=== PATIENT | male | born 1975 | race Two or more races ===

== ENCOUNTER → 2020-08-18 15:42 | Outpatient (BNVA) | payer SELFPAY | PROVIDERS: PCP Family Medicine; Visit Provider Nurse Practitioner ==

== ENCOUNTER 2021-02-01 10:49 | Outpatient (REF) | payer OTHER, SELFPAY ==
[2021-02-01 12:51] LABS: Alanine Aminotransferase 73 U/L (0-40); Albumin Level 4.3 g/dL (3.5-5.0); Alkaline Phosphatase 77 U/L (39-117); Anion Gap 14 (12-20); Aspartate Amino Transferase 32 U/L (5-37); Bilirubin Total 0.5 mg/dL (0.0-1.0); Blood Urea Nitrogen 18 mg/dL (9-16); Calcium 9.5 mg/dL (8.4-10.2); Carbon Dioxide 27 mmol/L (22-29); Chloride 106 mmol/L (96-108); Estimated Glomerular Filt Rate > 60; Gamma Glutamyl Transpeptidase 37 U/L (11-51); Glucose Random 146 mg/dL (60-115); Potassium 4.5 mmol/L (3.3-5.1); Sodium 142 mmol/L (135-145); Total Protein 7.2 g/dL (6.5-8.0)
[2021-02-01 13:11] LABS: Ferritin 181 ng/mL (20-250); TSH reflex Free T4 1.91 uIU/mL (0.32-4.0)
== END 2021-02-01 10:50 | disposition home or self-care (01) ==
LOC: HO.LAB 10:49
PROVIDERS: PCP Family Medicine; Referring Provider Family Medicine; Visit Provider Nurse Practitioner
DX: K59.00 Constipation, unspecified (principal); R14.0 Abdominal distension (gaseous); R19.5 Other fecal abnormalities
CPT/HCPCS: 36415; 80053; 82105; 82728; 82977; 84443; 99212

== ENCOUNTER → 2021-03-17 13:21 | Outpatient (BNVA) | payer OTHER, SELFPAY | PROVIDERS: PCP Family Medicine; Referring Provider Family Medicine; Visit Provider Nurse Practitioner | DX: K21.9 Gastro-esophageal reflux disease without esophagitis (principal); K76.0 Fatty (change of) liver, not elsewhere classified; K59.00 Constipation, unspecified; R14.0 Abdominal distension (gaseous) | CPT/HCPCS: 99212 ==

== ENCOUNTER 2021-04-07 07:53 | Outpatient (REF) | payer OTHER, SELFPAY ==
--- NOTE | ~2021-04-07 | US_ITS ---
EXAMINATION: US ABDOMEN COMPLETE CLINICAL INFORMATION: Gastroesophageal reflux disease without esophagitis. COMPARISON: Limited abdominal ultrasound 05/12/2019 and ultrasound abdomen complete 01/09/2019 TECHNIQUE: Real-time imaging of the abdominal viscera. FINDINGS: PANCREAS: Normal. ABDOMINAL AORTA: The visualized aorta is normal in caliber. INFERIOR VENA CAVA: Visualized portions are normal. LIVER: Enlarged liver measuring 22.6 cm. The liver contour is normal. There is diffuse increased liver parenchymal echogenicity, consistent with hepatic steatosis. No focal hepatic lesion. There is no intrahepatic biliary duct dilatation seen. GALLBLADDER: Normal. The gallbladder is physiologically distended without evidence of stones, sludge, polyps, wall thickening or pericholecystic fluid. COMMON BILE DUCT: Normal in caliber measuring 0.4 cm in diameter. RIGHT KIDNEY: Normal. No hydronephrosis. No renal calculi or focal parenchymal lesions. The kidney measures 13.0 cm in maximum dimension. LEFT KIDNEY: No hydronephrosis. No renal calculi or focal parenchymal lesions. The kidney measures 13.5 cm in maximum dimension. 1.9 cm simple cyst versus extrarenal pelvis. No follow-up imaging recommended. SPLEEN: Normal. The spleen measures 10.2 cm in maximum dimension. FREE FLUID: None. US/US abdomen complete IMPRESSION: Hepatomegaly with hepatic steatosis.
== END 2021-04-07 07:54 | disposition home or self-care (01) ==
LOC: HO.US 07:53
PROVIDERS: PCP Family Medicine; Visit Provider Nurse Practitioner
DX: K21.9 Gastro-esophageal reflux disease without esophagitis (principal)
CPT/HCPCS: 76700

== ENCOUNTER 2021-04-08 20:40 | Emergency (ER) | payer OTHER, SELFPAY ==
[2021-04-08 20:48] VITALS: BP 130/72; PULSE 96; RESP 18; TEMP 36.9; O2SAT 97; BMI 46.7
[2021-04-09 00:43] VITALS: BP 101/59; PULSE 78; RESP 18; TEMP 37; O2SAT 98
[2021-04-09 00:57] LABS: Basophils Percent Auto 0.3 % (0-2); Eosinophils Absolute Auto 0.3 X10*3/uL (0.0-0.4); Eosinophils Percent Auto 3.1 % (0-4); Hematocrit 43.8 % (42-52); Hemoglobin 14.5 g/dl (14.0-18.0); Imm Gran Abs Auto 0.02 X10*3/uL (0.00-0.03); Imm Gran Pct Auto 0.2 % (0.0-0.4); Lymphocytes Percent Auto 34.6 % (20-40); MANUAL DIFF FLAG NO; Mean Corpuscular HGB Conc 33.1 g/dl (31.0-36.0); Mean Corpuscular Hemoglobin 28.8 pg (27.0-33.0); Mean Corpuscular Volume 87.1 fL (80-98); Mean Platelet Volume 10.6 fL (9.4-12.4); Monocytes Absolute Auto 0.8 X10*3/uL (0.1-1.2); Monocytes Percent Auto 9.6 % (2-11); Neutrophils Absolute Auto 4.5 X10*3/uL (2.0-8.3); Neutrophils Percent Auto 52.2 % (45-73); Platelet Count 254 X10*3/uL (160-400); Red Blood Count 5.03 X10*6/uL (4.60-5.80); Red Cell Distribution Width 13.4 % (11.0-16.0); White Blood Count 8.6 X10*3/uL (4.8-10.8)
[2021-04-09 01:14] LABS: Alanine Aminotransferase 73 U/L (0-40); Albumin Level 4.3 g/dL (3.5-5.0); Alkaline Phosphatase 86 U/L (39-117); Anion Gap 12 (12-20); Aspartate Amino Transferase 30 U/L (5-37); Bilirubin Total 0.4 mg/dL (0.0-1.0); Blood Urea Nitrogen 20 mg/dL (9-16); Calcium 9.3 mg/dL (8.4-10.2); Carbon Dioxide 27 mmol/L (22-29); Chloride 106 mmol/L (96-108); Creatinine Clr Calc Pharmacy 140.9; Estimated Glomerular Filt Rate > 60; Glucose Random 111 mg/dL (60-115); Sodium 141 mmol/L (135-145); Total Protein 7.2 g/dL (6.5-8.0)
[2021-04-09 01:26] LABS: OBS Int Ctl Valid YES; OBS1 POSITIVE (NEGATIVE)
--- NOTE | 2021-04-09 01:43 | ED.GIBLEED ---
HPI - GI Bleed General Chief complaint: GI Bleed Stated complaint: Rectum bleeding Time Seen by Provider: 04/09/21 01:43 Source: patient and family () Mode of arrival: ambulatory History of Present Illness HPI Narrative: 46-year-old male with history of constipation, hepatic steatosis, GERD, and anxiety presents with 2 weeks of 3 episodes of bleeding with bowel movement that is painful in nature and is associated with anal itching. Patient denies constipation and denies discussing this with his biostatistics professor whom is following him currently for epigastric/stomach symptoms. Patient denies any abdominal pain, palpitations, lightheadedness, shortness of breath, diaphoresis. Related Data Home Medications Medication Instructions Recorded Confirmed hydroxyzine HCl 25 mg tablet 25 mg PO 08/18/20 fluticasone propionate 50 1 - 2 spray INTRANASAL DAILY PRN 03/17/21 mcg/actuation nasal spray,suspension Previous Rx's Medication Instructions Recorded bisacodyl 5 mg tablet,delayed 10 mg PO BEDTIME 30 Days #60 tab 02/01/21 release (Dulcolax (bisacodyl)) simethicone 180 mg capsule 180 mg PO .TIDAC 30 Days #90 cap 02/01/21 metronidazole 500 mg tablet 500 mg PO TID 10 Days #30 tab 03/17/21 omeprazole 20 mg capsule,delayed 20 mg PO BID 30 Days #60 cap 03/17/21 release Allergies Allergy/AdvReac Type Severity Reaction Status Date / Time amoxicillin Allergy Unknown dizziness Verified 03/17/21 13:32 penicillin V Allergy Unknown dizziness Verified 03/17/21 13:32 Review of Systems Review of Systems: Pertinent positives and negatives as stated in HPI and 10 point review of systems is otherwise negative. [facility] Past Medical History Source: nursing notes reviewed Medical History Anxiety GERD (gastroesophageal reflux disease) IBS (irritable bowel syndrome) Loose stools Morbid obesity Surgical History History of esophagogastroduodenoscopy (EGD) Family History Family History Father History of diabetes mellitus Mother History of diabetes mellitus Brother History of stomach cancer Social History Social History Alcohol intake: never Patient Tobacco Use Status: Never used Tobacco Use of substances other than those prescribed or required for medical reasons: No Advance Directives: No Advance Directives Information Provided: No Physical Exam Vital Signs: Vital Signs: Last Vital Signs Temp 98.6 F 04/09/21 00:43 Pulse 78 04/09/21 00:43 Resp 18 04/09/21 00:43 BP 101/59 L 04/09/21 00:43 Pulse Ox 98 04/09/21 00:43 Body Mass Index 46.7 VITAL SIGNS: Reviewed. GENERAL: Well developed, well nourished, in no acute distress. HEAD: Normocephalic/atraumatic EYES: PERRLA, EOMI OROPHARYNX: no oral lesions noted, posterior pharynx clear LUNGS: Normal breath sounds. No adventitious sounds or accessory muscle use. SpO2<98> CARDIOVASCULAR: Regular rate and rhythm without noted murmurs ABDOMEN: Soft, non-tender, non-distended with bowel sounds. EDWIN: Noninflamed hemorrhoid noted at 10:00 a.m. position, no fissures noted, no internal hemorrhoids appreciated and scant amount of blood on finger mixed with stool but difficult rectal exam. SKIN: Inspection of the skin reveals no rashes or pallor NEUROLOGIC: Alert and oriented x 4. Course Course Course Narrative: 46-year-old male with history and clinical presentation most consistent with intermittent hemorrhoidal bleeding. Symptoms and findings consistent with external hemorrhoids and patient will be provided with outpatient options and instructed to follow-up with his biostatistics professor on Sunday morning and discuss his symptoms at that time. On review of all investigations there is no evidence of anemia and on history there is no evidence of symptomatic findings. MDM - GI Bleed Lab Data Result diagrams: 04/09/21 00:46 04/09/21 00:46 Labs: Lab Results 04/09/21 04/09/21 04/09/21 Range/Units 00:46 00:46 01:22 WBC 8.6 (4.8-10.8) X10*3/uL RBC 5.03 (4.60-5.80) X10*6/uL Hgb 14.5 (14.0-18.0) g/dl Hct 43.8 (42-52) % MCV 87.1 (80-98) fL MCH 28.8 (27.0-33.0) pg MCHC 33.1 (31.0-36.0) g/dl RDW 13.4 (11.0-16.0) % Plt Count 254 (160-400) X10*3/uL MPV 10.6 (9.4-12.4) fL Immature Gran % (Auto) 0.2 (0.0-0.4) % Neut % (Auto) 52.2 (45-73) % Lymph % (Auto) 34.6 (20-40) % [place] % (Auto) 9.6 (2-11) % Eos % (Auto) 3.1 (0-4) % Baso % (Auto) 0.3 (0-2) % Lymph # (Auto) 3.0 (1.2-4.9) X10*3/uL [place] # (Auto) 0.8 (0.1-1.2) X10*3/uL Eos # (Auto) 0.3 (0.0-0.4) X10*3/uL Baso # (Auto) 0.0 (0.0-0.2) X10*3/uL Abs Immat Gran (auto) 0.02 (0.00-0.03) X10*3/uL Absolute Neuts (auto) 4.5 (2.0-8.3) X10*3/uL Absolute Nucleated RBC 0.000 (0.0-0.012) X10*3/uL Nucleated RBC % (auto) 0.0 (0.0-0.2) /100WBC Sodium 141 (135-145) mmol/L Potassium 4.0 (3.3-5.1) mmol/L Chloride 106 (96-108) mmol/L Carbon Dioxide 27 (22-29) mmol/L Anion Gap 12 (12-20) BUN 20 H (9-16) mg/dL Creatinine 0.86 (0.5-1.4) mg/dL Estim Creat Clear Calc 140.9 Estimated GFR > 60 Random Glucose 111 (60-115) mg/dL Calcium 9.3 (8.4-10.2) mg/dL Total Bilirubin 0.4 (0.0-1.0) mg/dL AST 30 (5-37) U/L ALT 73 H (0-40) U/L Alkaline Phosphatase 86 (39-117) U/L Total Protein 7.2 (6.5-8.0) g/dL Albumin 4.3 (3.5-5.0) g/dL Stool Occult Blood POSITIVE (NEGATIVE) Discharge Plan Discharge Clinical Impression: Bleeding hemorrhoids Patient Disposition: Home, Self-Care Instructions: Hemorrhoids (ED), Rectal Bleeding (ED), Sitz Bath (DC) Additional Instructions: 1. Reanude todos los medicamentos caseros seg?n lo prescrito. 2. Recomendar la preparaci?n H de venta herbert para el prurito anal y la reducci?n de la inflamaci?n. 3. Recomendar ba?os de asiento, por favor revise la informaci?n proporcionada. 4. Llame a zepeda gastroenter?logo el lunes por la ma?noa para programar nerissa mery de reevaluaci?n y analice estos episodios de hemorragia hemorroidal en kushal momento. Regrese a la adalgisa de emergencias si estuardo s?ntomas empeoran de manera aguda. Prescriptions: No Action hydroxyzine HCl 25 mg tablet 25 mg PO RF: 0 bisacodyl [Dulcolax (bisacodyl)] 5 mg tablet,delayed release (DR/EC) 10 mg PO BEDTIME 30 Days Qty: 60 RF: 6 simethicone 180 mg capsule 180 mg PO .TIDAC 30 Days Qty: 90 RF: 3 fluticasone propionate 50 mcg/actuation spray,suspension 1 - 2 spray intranasal DAILY PRNRF: 0 metronidazole 500 mg tablet 500 mg PO TID 10 Days Qty: 30 RF: 0 omeprazole 20 mg capsule,delayed release(DR/EC) 20 mg PO BID 30 Days Qty: 60 RF: 6 Referrals: Rachele Treviño MD [Primary Care Provider] - 2 days Isabel Peter ANP-C [Nurse Practitioner] - 2 days (Pt having intermittent episodes of what appears to be ext hemorrhoid bleeding.) Print Language: Senegalese
== END 2021-04-09 02:06 | disposition home or self-care (01) ==
PROVIDERS: Emergency Provider Student in an Organized Health Care Education/Training Program; PCP Family Medicine
DX: K64.9 Unspecified hemorrhoids (principal)
CPT/HCPCS: 36415; 80053; 82272; 85025; 99284

== ENCOUNTER → 2021-04-12 11:06 | Outpatient (BNVA) | payer OTHER, SELFPAY | PROVIDERS: PCP Family Medicine; Referring Provider Family Medicine; Visit Provider Nurse Practitioner | DX: K21.9 Gastro-esophageal reflux disease without esophagitis (principal); K76.0 Fatty (change of) liver, not elsewhere classified; K59.00 Constipation, unspecified; K64.9 Unspecified hemorrhoids; B37.89 Other sites of candidiasis | CPT/HCPCS: 99212 ==

== ENCOUNTER → 2021-04-25 13:03 | Outpatient (BNVA) | payer OTHER, SELFPAY | PROVIDERS: PCP Family Medicine; Referring Provider Family Medicine; Visit Provider Nurse Practitioner | DX: K76.0 Fatty (change of) liver, not elsewhere classified (principal); K21.9 Gastro-esophageal reflux disease without esophagitis; K59.00 Constipation, unspecified; K60.2 Anal fissure, unspecified | CPT/HCPCS: 99212 ==

== ENCOUNTER → 2021-05-10 12:18 | Outpatient (BNVA) | payer OTHER, SELFPAY | PROVIDERS: PCP Family Medicine; Referring Provider Family Medicine; Visit Provider Nurse Practitioner | DX: K60.2 Anal fissure, unspecified (principal); K59.00 Constipation, unspecified; K64.9 Unspecified hemorrhoids | CPT/HCPCS: 99212 ==

== ENCOUNTER → 2021-05-24 08:06 | Outpatient (BNVA) | payer OTHER, SELFPAY | PROVIDERS: PCP Family Medicine; Referring Provider Family Medicine; Visit Provider Nurse Practitioner | DX: K76.0 Fatty (change of) liver, not elsewhere classified (principal); K21.9 Gastro-esophageal reflux disease without esophagitis; K59.00 Constipation, unspecified; K60.2 Anal fissure, unspecified; K64.9 Unspecified hemorrhoids | CPT/HCPCS: 99212 ==

== ENCOUNTER 2021-07-05 08:40 | Outpatient (REF) | payer OTHER, SELFPAY ==
[2021-07-05 10:49] LABS: C Reactive Protein 0.97 mg/dL (< or = 0.50)
== END 2021-07-05 08:41 | disposition home or self-care (01) ==
LOC: HO.LAB 08:40
PROVIDERS: PCP Family Medicine; Referring Provider Family Medicine; Visit Provider Nurse Practitioner
DX: K60.2 Anal fissure, unspecified (principal); K59.00 Constipation, unspecified; K64.9 Unspecified hemorrhoids; Z12.11 Encounter for screening for malignant neoplasm of colon
CPT/HCPCS: 36415; 86140

== ENCOUNTER 2021-08-12 10:13 | Day surgery (SDC) | payer OTHER, SELFPAY ==
[2021-07-18 13:40] VITALS: BMI 49.0
--- NOTE | 2021-07-21 09:16 | HO.ANESPROP2 ---
HPI - Anesthesia Eval Consult details Narrative: 46yo M for Colonoscopy PMFSH Active Problems Active Problems: All Active Problems (Updated 07/18/21 @ 13:39 by Kaycee Roe RN) Hepatic steatosis (Acute) Constipation (Acute) Abdominal bloating (Acute) Rectal candidiasis (Acute) Bleeding hemorrhoids (Acute) Rectal fissure (Acute) GERD (gastroesophageal reflux disease) (Acute) Morbid obesity (Acute) Anxiety (Acute) Past Medical History Medical History (Updated 07/18/21 @ 13:39 by Kaycee Roe RN) Anxiety GERD (gastroesophageal reflux disease) History of COVID-19 IBS (irritable bowel syndrome) Loose stools Morbid obesity Family History Family History Father History of diabetes mellitus Mother History of diabetes mellitus Brother History of stomach cancer Surgical History Surgical History (Updated 07/18/21 @ 13:37 by Kaycee Roe RN) History of esophagogastroduodenoscopy (EGD) Social History Social History Alcohol intake: never Patient Tobacco Use Status: Never used Tobacco Meds Allergies Allergy/AdvReac Type Severity Reaction Status Date / Time amoxicillin Allergy Unknown dizziness Verified 07/05/21 08:54 penicillin V Allergy Unknown dizziness Verified 07/05/21 08:54 metronidazole AdvReac Mild Confusion Verified 07/05/21 08:54 Home Medications Medication Instructions Recorded Confirmed Last Taken Type hydroxyzine HCl 25 mg tablet 25 mg PO 08/18/20 04/25/21 Unknown History fluticasone propionate 50 1 - 2 spray INTRANASAL DAILY PRN 03/17/21 04/25/21 Unknown History mcg/actuation nasal spray,suspension nifedipine VT BID 04/25/21 Unknown History Exam Exam Date and Time: July 21, 2021 0916 Height,Weight and Vital Signs: Height 5 ft 6 in Weight 137.892 kg Pertinent Lab Results Pertinent Lab Results: Laboratory Tests 04/09/21 04/09/21 00:46 00:46 WBC 8.6 Hgb 14.5 Hct 43.8 Plt Count 254 Sodium 141 Potassium 4.0 Chloride 106 Carbon Dioxide 27 BUN 20 H Creatinine 0.86 Assessment and Plan Assessment Anesthesia Assessment: Chart Reviewed
[2021-08-12 11:11] VITALS: BP 136/77; PULSE 95; RESP 18; TEMP 36.8; O2SAT 98
[2021-08-12] MEDS: Lactated Ringers 1,000 ML 100 ML IVCONT (11:24)
--- NOTE | 2021-08-12 11:50 | MHC.SHP ---
Pre-Procedural Eval Section A Date of Service: 08/12/21 The patient is an INPATIENT: No The History & Physical has been completed within 30 days and I have reviewed it.: No Section B Chief Complaint: Rectal Fissure, Constipation Details of Present Illness: anal fissure, constipation Relevant Family History (Specify if Yes): Yes Relevant Social History: None Present Medications: see Short Stay Collaborative assessment Medical History: Significant History (Anxiety GERD (gastroesophageal reflux disease) IBS (irritable bowel syndrome) Loose stools Morbid obesity) History of Previous Operations: Relevant previous surgery/procedure and date(s) (hx of EGD) Allergies: Allergies Allergy/AdvReac Type Severity Reaction Status Date / Time amoxicillin Allergy Unknown dizziness Verified 07/05/21 08:54 penicillin V Allergy Unknown dizziness Verified 07/05/21 08:54 metronidazole AdvReac Mild Confusion Verified 07/05/21 08:54 Review of Systems Sugical H&P ROS: Negative: Cardiovascular and Respiratory and Yes, Specify: Constitution (Morbidly obese) and Gastrointestinal (Constipation) Exam Surgical H&P Exam: Normal: Heart, Normal: Lungs, Normal: Extremities and Normal: Abdomen Plan Diagnosis/Plan: Unchanged I have reviewed the history and physical and performed a pertinent physical examination on my patient. No changes have occurred unless specified.
--- NOTE | 2021-08-12 12:49 | P.OP_ITS ---
Operative Note Operative Note Date of Service: 08/12/21 Narrative: Pre-op diagnosis: Chronic constipaiton, anal fissure Post-op diagnosis:?other (Colon polyp, diverticulosis, hemorrhoids, healed anal fissure) Procedure: COLONOSCOPY TILL CECUM WITH BIOPSIES AND SNARE POLYPECTOMY Consent: Indications for the procedure and potential complications of bleeding, perforation, reaction to medications and missed diagnosis were discussed with the patient and informed consent was obtained. Instrument: Olympus PCF H 190 L variable stiffness pediatric colonoscope Monitoring: Vital signs and clinical assessment, intermittent blood pressure monitoring, continuous EKG monitoring, Pulse oximetry and Carbon Dioxide monitoring were done throughout the procedure. Colon withdrawl time was 14 minutes. Procedure: The patient was placed in the left lateral decubitis position and pre-procedure medications were administered. After a digital rectal examination of the ano-rectum, the video colonoscope was inserted into the rectum and advanced through the colon to the cecum. The colonoscope was slowly withdrawn in a retrograde panoramic fashion and the colon mucosa was carefully examined including a retroflexed view of the rectum. Findings and interventions are described below. Procedure Difficulty: Without difficulty Findings: Terminal Ileum: Not evaluated Cecum:? Normal Ascending Colon:? Normal Transverse Colon:? Normal Descending Colon:? Normal Sigmoid Colon:? Mild diverticulosis Rectum:? A 7-8 mm sessile polyp on retroflexed exam removed with a hot snare Ano-rectum:? Moderate internal hemorrhoids. A skin tag noted in the anal canal - likely site of healed anal fissure. No active fissure seen. Colon preparation: Excellent ? Impression and Post Procedure Diagnosis: Colonoscopy Findings: One small polyp removed. Random biopsies obtained from the right colon to check for microscopic colitis. Mild diverticulosis seen in the sigmoid colon Moderate hemorrhoids on retroflexed exam. A skin tag noted in the anal canal - likely site of healed anal fissure Plan: Await pathology results Patient has an appointment on 08/26/21 in the [facility] with? Isabel Peter NP. Repeat Colonoscopy interval based on path results - in 5 years if polyps are adenomatous and 10 years if polyps are hyperplastic. Above findings were reviewed with the patient and colon polyps, Anal Fissure and Hemorrhoids handouts were given in the discharge area Surgeon: Jeffery Mackey MD Anesthesia:?MAC (Nhung Romero CRNA) Was an Campus Security Officer used for this Procedure?:?Yes Campus Security Officer:?Jill Coon Estimated blood loss (mL):?0 Pathology:?other (A. right colon bxs, R/O microscopic colitis? B. rectal polyp) Condition:?stable Disposition:?PACU
[2021-08-12 13:45] VITALS: BP 108/65; PULSE 87; RESP 16; TEMP 36.2; O2SAT 100
[2021-08-12 14:00] VITALS: BP 106/66; PULSE 82; RESP 16; TEMP 36.3; O2SAT 97
== END 2021-08-12 14:32 | disposition home or self-care (01) ==
PROVIDERS: PCP Family Medicine; Visit Provider Internal Medicine Gastroenterology
PROC: 0DJD8ZZ Inspection of Lower Intestinal Tract, Via Natural or Artificial Opening Endoscopic (ICD-10-PCS; CPT 45378; principal; 2021-08-12 11:50)
DX: K62.81 Anal sphincter tear (healed) (nontraumatic) (old) (principal); K59.09 Other constipation; K57.30 Diverticulosis of large intestine without perforation or abscess without bleeding; K64.8 Other hemorrhoids; K62.1 Rectal polyp; K64.4 Residual hemorrhoidal skin tags
CPT/HCPCS: 45385; 45380; 88305; J2405; J2765

== ENCOUNTER → 2021-08-26 08:35 | Outpatient (BNVA) | payer OTHER, SELFPAY | PROVIDERS: PCP Family Medicine; Referring Provider Family Medicine; Visit Provider Nurse Practitioner | DX: K21.9 Gastro-esophageal reflux disease without esophagitis (principal); K60.2 Anal fissure, unspecified; K64.9 Unspecified hemorrhoids; K76.0 Fatty (change of) liver, not elsewhere classified; K59.00 Constipation, unspecified | CPT/HCPCS: 99212 ==

== ENCOUNTER → 2021-09-08 13:53 | Outpatient (BNVA) | payer OTHER, SELFPAY | PROVIDERS: PCP Family Medicine; Referring Provider Family Medicine; Visit Provider Surgery | DX: K64.8 Other hemorrhoids (principal); L29.0 Pruritus ani; E66.01 Morbid (severe) obesity due to excess calories; Z68.43 Body mass index [BMI] 50.0-59.9, adult | CPT/HCPCS: 46600; 99202 ==

== ENCOUNTER 2021-11-11 11:45 | Outpatient (REF) | payer OTHER, SELFPAY | END 2021-11-11 11:46 | disposition home or self-care (01) | LOC: HO.LAB 11:45 | PROVIDERS: PCP Family Medicine; Referring Provider Family Medicine; Visit Provider Nurse Practitioner | DX: K58.2 Mixed irritable bowel syndrome (principal); K21.9 Gastro-esophageal reflux disease without esophagitis; K76.0 Fatty (change of) liver, not elsewhere classified; K64.9 Unspecified hemorrhoids | CPT/HCPCS: 36415; 86003; 99212 ==

== ENCOUNTER 2021-12-20 07:40 | Outpatient (REF) | payer OTHER, SELFPAY ==
--- NOTE | ~2021-12-20 | US_ITS ---
EXAMINATION: US ABDOMEN LIMITED CLINICAL INFORMATION: Fatty (change of) liver, not elsewhere classified. COMPARISON: Ultrasound abdomen complete 04/07/2021. Ultrasound abdomen limited 05/12/2019. TECHNIQUE: Real-time imaging of the right upper quadrant abdominal viscera. FINDINGS: PANCREAS: Normal. LIVER: The liver is enlarged measuring 22.1 cm. The liver contour is normal. Increased liver echogenicity seen throughout. No focal hepatic lesion. There is no intrahepatic biliary duct dilatation seen. GALLBLADDER: The gallbladder is physiologically distended without evidence of stones, sludge, polyps, or pericholecystic fluid. COMMON BILE DUCT: Normal in caliber measuring 0.3 cm in diameter. RIGHT KIDNEY: Normal. No hydronephrosis. No renal calculi or focal parenchymal lesions. The kidney measures 13.6 cm in maximum dimension. FREE FLUID: None. US/US abdomen limited IMPRESSION: Mild hepatomegaly with hepatic steatosis. No focal lesion seen. Visualized pancreas, gallbladder and the right kidneys unremarkable. No change from previous study 04/07/2021
== END 2021-12-20 07:41 | disposition home or self-care (01) ==
LOC: HO.US 07:40
PROVIDERS: Visit Provider Nurse Practitioner
DX: K76.0 Fatty (change of) liver, not elsewhere classified (principal)
CPT/HCPCS: 76705

== ENCOUNTER → 2022-02-09 10:54 | Outpatient (BNVA) | payer OTHER, SELFPAY | PROVIDERS: PCP Family Medicine; Visit Provider Nurse Practitioner | DX: K58.2 Mixed irritable bowel syndrome (principal); K60.2 Anal fissure, unspecified; K76.0 Fatty (change of) liver, not elsewhere classified | CPT/HCPCS: 99212 ==

== ENCOUNTER 2022-05-28 14:27 | Emergency (ER) | payer OTHER, SELFPAY ==
--- NOTE | ~2022-05-28 | XR_ITS ---
EXAMINATION: CHEST 2 VIEWS CLINICAL INFORMATION: cough/nasal congestion . COMPARISON: No recent pertinent prior studies are available for comparison. TECHNIQUE: PA and lateral views of the chest obtained. FINDINGS: The lungs are hypoexpanded with basilar atelectatic changes. No focal infiltrate, effusion, edema, or pneumothorax. Cardiac and mediastinal silhouettes are within normal limits for technique. No acute bony abnormality seen XR/XR chest 2V IMPRESSION: Hypoexpanded with basilar markings more likely due to atelectasis.
[2022-05-28 15:05] VITALS: BP 146/78; PULSE 92; RESP 18; TEMP 36.3; O2SAT 98; BMI 43.5
--- NOTE | 2022-05-28 15:07 | ED.URI ---
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 Patient states that over the last 3 weeks he has had sinus congestion that is causing pain. Patient denies any dizziness, lightheadedness, abdominal pain, nausea, vomiting, fever, chills, blurry vision, double vision, loss of vision, chest pain, difficulty breathing, shortness of breath, back pain, night sweats, pain with urination, increased urinary frequency, increased urinary urgency, blood in his urine or stool, syncope or a near syncopal episode, recent trauma or falls, bowel incontinence, bladder incontinence, bowel retention, bladder retention, or any other complaints at this time. <EUSEBIA Boss Last Filed: 05/29/22 01:20> MD elicited complaint: nasal congestion and sinus pain <EUSEBIA Boss Last Filed: 05/29/22 01:20> Severity: mild <EUSEBIA Boss Last Filed: 05/29/22 01:20> Pain scale (0-10): 3 <EUSEBIA Boss Last Filed: 05/29/22 01:20> Able to tolerate fluids by mouth: Yes <EUSEBIA Boss Last Filed: 05/29/22 01:20> Exacerbating factors: nothing <EUSEBIA Boss Last Filed: 05/29/22 01:20> Relieving factors: nothing <EUSEBIA Boss Last Filed: 05/29/22 01:20> Associated symptoms: denies other symptoms <EUSEBIA Boss - Last Filed: 05/29/22 01:20> Treatments prior to arrival: none <EUSEBIA Boss - Last Filed: 05/29/22 01:20> Related Data Home Medications: Home Medications Medication Instructions Recorded Confirmed hydroxyzine HCl 25 mg tablet 25 mg PO anxiety 08/18/20 09/08/21 fluticasone propionate 50 1 - 2 spray intranasal DAILY PRN 03/17/21 09/08/21 mcg/actuation nasal spray,suspension nifedipine DE BID 04/25/21 09/08/21 Previous Rx's Medication Instructions Recorded omeprazole 20 mg capsule,delayed 20 mg PO BID 30 days #60 caps 08/26/21 release simethicone 180 mg capsule 180 mg PO .TIDAC 30 days #90 caps 08/26/21 hydrocortisone 2.5 % topical cream 1 appl DE BID PRN hemorrhoids 30 11/15/21 with perineal applicator days #30 grams menthol 0.44 %-zinc oxide 20.6 % 1 appl topical QID PRN wound 11/18/21 topical ointment (Calmoseptine) healing #113 grams doxycycline hyclate 100 mg tablet 100 mg PO BID 7 days #14 tabs 05/28/22 <EUSEBIA Ch - Last Filed: 05/28/22 15:08> Allergies/Adverse Reactions: Allergies Allergy/AdvReac Type Severity Reaction Status Date / Time amoxicillin Allergy Unknown dizziness Verified 02/09/22 11:19 penicillin V Allergy Unknown dizziness Verified 02/09/22 11:19 metronidazole AdvReac Mild Confusion Verified 02/09/22 11:19 <EUSEBIA Ch - Last Filed: 05/28/22 15:08> Review of Systems Constitutional: Constitutional: Reports no additional constitutional complaints, Denies chills, Denies fever(s) and Denies night sweats <EUSEBIA Boss Last Filed: 05/29/22 01:20> Eyes: Eyes: Reports no additional eye complaints, Denies blurry vision, Denies change in vision, Denies diplopia, Denies eye discharge, Denies loss of vision and Denies eye pain <EUSEBIA Boss Last Filed: 05/29/22 01:20> ENT: Denies dizziness and Reports sinus pain <EUSEBIA Boss Last Filed: 05/29/22 01:20> Cardiovascular: Cardiovascular: Reports no additional cardiovascular complaints, Denies chest pain, Denies lightheadedness, Denies Loss of Consciousness and Denies dyspnea <EUSEBIA Boss Last Filed: 05/29/22 01:20> Respiratory: Respiratory: Reports no additional respiratory complaints and Denies dyspnea <EUSEBIA Boss - Last Filed: 05/29/22 01:20> Gastrointestinal: Gastrointestinal: Reports no additional gastrointestinal complaints, Denies abdominal pain, Denies melena, Denies hematochezia, Denies change in bowel habits and Denies change in stool character <EUSEBIA Boss - Last Filed: 05/29/22 01:20> Genitourinary: Genitourinary: Reports no additional male genitourinary complaints, Denies hematuria, Denies oliguria, Denies difficulty urinating, Denies dysuria, Denies urinary frequency, Denies urinary hesitancy, Denies urinary incontinence and Denies urinary urgency <EUSEBIA Boss Last Filed: 05/29/22 01:20> Musculoskeletal: Musculoskeletal: Reports no additional musculoskeletal complaints, Denies numbness and Denies tingling <EUSEBIA Boss - Last Filed: 05/29/22 01:20> Neurologic: Denies dizziness, Denies loss of vision, Denies numbness and Denies tingling <EUSEBIA Boss Last Filed: 05/29/22 01:20> Psychiatric: Psychiatric: Reports no additional psychiatric complaints <EUSEBIA Boss Last Filed: 05/29/22 01:20> Endocrine: Endocrine: Reports no additional endocrine complaints <EUSEBIA Boss Last Filed: 05/29/22 01:20> Hematologic/Lymphatic: Hematologic/Lymphatic: Reports no additional hematologic/lymphatic complaints <EUSEBIA Boss Last Filed: 05/29/22 01:20> Allergic/Immunologic: Allergic/Immunologic: Reports no additional allergic/immunologic complaints <EUSEBIA Boss Last Filed: 05/29/22 01:20> PMFSH Past Medical History Attestation statement: The following information was validated with the patient. <EUSEBIA Boss - Last Filed: 05/29/22 01:20> Source: old records reviewed and nursing notes reviewed <EUSEIBA Boss - Last Filed: 05/29/22 01:20> Medical History: Medical History Anxiety GERD (gastroesophageal reflux disease) Hemorrhoids with complication History of COVID-19 Loose stools Morbid obesity Pruritus ani <EUSEBIA Ch - Last Filed: 05/28/22 15:08> Surgical History: Surgical History History of colonoscopy (08/12/21) History of esophagogastroduodenoscopy (EGD) <EUSEBIA Ch - Last Filed: 05/28/22 15:08> Family History Family History: Family History Father History of diabetes mellitus Mother History of diabetes mellitus Brother History of stomach cancer <EUSEBIA Ch - Last Filed: 05/28/22 15:08> Social History Social History: Social History Alcohol intake: never Patient Tobacco Use Status: Never used Tobacco Advance Directives: No Advance Directives Information Provided: Yes <EUSEBIA Ch - Last Filed: 05/28/22 15:08> Physical Exam Vital Signs: Vital Signs: Last Vital Signs Temp 97.4 F 05/28/22 15:05 Pulse 92 05/28/22 15:05 Resp 18 05/28/22 15:05 BP 146/78 H 05/28/22 15:05 Pulse Ox 98 05/28/22 15:05 O2 Del Method 05/28/22 15:05 BMI result Body Mass Index 43.5 <EUSEBIA Ch - Last Filed: 05/28/22 15:08> Vital Signs: Last Vital Signs Temp 97.4 F 05/28/22 15:05 Pulse 92 05/28/22 15:05 Resp 18 05/28/22 15:05 BP 146/78 H 05/28/22 15:05 Pulse Ox 98 05/28/22 15:05 O2 Del Method 05/28/22 15:05 BMI result Body Mass Index 43.5 <Tatiana Spring VT - Last Filed: 05/29/22 01:20> Const: General: cooperative, no acute distress, alert and awake <EUSEBIA Boss - Last Filed: 05/29/22 01:20> Nutritional Appearance: well nourished <Tatiana Spring VT - Last Filed: 05/29/22 01:20> Orientation/consciousness: patient oriented x3 <EUSEBIA Boss - Last Filed: 05/29/22 01:20> Limitations: no limitations <Tatiana Spring VT - Last Filed: 05/29/22 01:20> HEENT: Head: Yes normal to inspection and Yes atraumatic <EUSEBIA Boss - Last Filed: 05/29/22 01:20> Ears: hearing grossly normal bilaterally and external ears normal <EUSEBIA Boss - Last Filed: 05/29/22 01:20> General nose exam: Normal external nose present, no nasal discharge noted and no epistaxis <Tatiana Spring VT - Last Filed: 05/29/22 01:20> Face and sinus: Yes normal facial exam, No abrasion, No laceration and Yes sinus tenderness <aTtiana Spring VT - Last Filed: 05/29/22 01:20> Mouth: Normal oral and palatal mucosa present, no drooling and no muffled voice <Tatiana Spring VT - Last Filed: 05/29/22 01:20> Eyes: General: appearance normal, both eyes and all related structures <EUSEBIA Boss - Last Filed: 05/29/22 01:20> Periorbital: periorbital findings normal <EUSEBIA Boss - Last Filed: 05/29/22 01:20> Eyelids: Yes eyelids normal <EUSEBIA Boss - Last Filed: 05/29/22 01:20> Conjunctivae: conjunctivae normal <EUSEBIA Boss - Last Filed: 05/29/22 01:20> Pupils: Equal, round and reactive pupils present <EUSEBIA Boss - Last Filed: 05/29/22 01:20> EOM: EOMs intact bilaterally <EUSEBIA Boss - Last Filed: 05/29/22 01:20> Neck: Neck: Yes normal visual inspection, Yes full ROM and Yes no lymphadenopathy <Tatiana Spring PA - Last Filed: 05/29/22 01:20> Chest: Chest palpation & inspection: normal inspection of the chest <Tatiana Spring PA - Last Filed: 05/29/22 01:20> Resp: Effort & Inspection: normal respiratory effort and able to speak in complete sentences <Tatiana Spring PA - Last Filed: 05/29/22 01:20> Auscultation: clear to auscultation bilaterally <Tatiana Spring PA - Last Filed: 05/29/22 01:20> Cardio: Rate: regular rate <Tatiana Spring PA - Last Filed: 05/29/22 01:20> Rhythm: regular rhythm <Tatiana Spring PA - Last Filed: 05/29/22 01:20> GI: Inspection: Yes normal to inspection <Tatiana Spring PA - Last Filed: 05/29/22 01:20> Neuro: General: patient oriented x3 and moves all extremities <Tatiana Spring PA - Last Filed: 05/29/22 01:20> Cranial nerves: Yes Equal, round and reactive pupils present <Tatiana Spring PA - Last Filed: 05/29/22 01:20> Cognition (Neuro): normal cognition <Tatiana Spring PA - Last Filed: 05/29/22 01:20> Motor exam (neuro): 5/5 motor strength present throughout <Tatiaan Spring PA - Last Filed: 05/29/22 01:20> Sensory Exam: Normal double simultaneous stimulation for sensation <Tatiana Spring PA - Last Filed: 05/29/22 01:20> Coordination: [id number]-pz-ntek test normal <Tatiana Spring PA - Last Filed: 05/29/22 01:20> Extrem: General: Yes normal to inspection, Yes full ROM and Yes capillary refill normal <Tatiana Spring PA - Last Filed: 05/29/22 01:20> Psych: Appearance: grossly normal <Tatiana Spring PA - Last Filed: 05/29/22 01:20> Mental Status: mental status grossly normal <EUSEBIA Boss - Last Filed: 05/29/22 01:20> Affect: normal affect <EUSEBIA Boss Last Filed: 05/29/22 01:20> Attitude: cooperative <EUSEBIA Boss Last Filed: 05/29/22 01:20> Thought process: Normal thought process present <EUSEBIA Boss Last Filed: 05/29/22 01:20> Thought content: Normal thought content present <EUSEBIA Boss Last Filed: 05/29/22 01:20> Insight: Good insight present (Psych) <EUSEBIA Boss Last Filed: 05/29/22 01:20> Course Course Course Narrative: RME- 15:15PM - 47 year old male who is [place]an-speaking presenting with to the ED with complaints of nasal congestion/rhinorrhea with subjective fevers nausea and a cough for the past 3 weeks. Reports he had a negative COVID test at home. Denies any measured fevers, dizziness, neck pain/stiffness, trouble swallowing breathing, chest pain or shortness of breath, vomiting, diarrhea, abdominal pain, recent travel or sick contacts or any other symptoms complaints or concerns at this time. Plan: CXR, COVID/RSV/flu swab. Patient is stable to go back to the waiting room to be evaluated in EM. <EUSEBIA Ch - Last Filed: 05/28/22 15:08> Medical Decision Making Medical Decision Making MDM Narrative: Patient is a 47 year old assigned male at with a history of GERD presenting to the emergency department today with sinus pain. Patient's physical exam showed sinus pain but was otherwise unremarkable. Patient's chest x-ray showed no acute process. Patient's RSV/COVID-19/Influenza swab was negative. I explained my physical exam findings as well as all test results to the patient. I answered all questions asked by the patient. I stressed the importance of the patient taking his medication as prescribed. I stressed the importance of the patient following up with his primary care provider. I stressed the importance of the patient returning to the emergency department immediately if his symptoms were to worsen or if he were to develop any dizziness, shortness of breath, difficulty breathing, chest pain, blurry vision, loss of vision, nausea, vomiting, abdominal pain, fever, chills, back pain, or any other complaints. Patient verbalized agreement and understanding with this treatment plan and discharge. <EUSEBIA Boss - Last Filed: 05/29/22 01:20> Differential Diagnosis Differential Diagnoses: The differential diagnosis associated with the presentation includes <EUSEBIA Boss - Last Filed: 05/29/22 01:20> sinusitis <EUSEBIA Boss - Last Filed: 05/29/22 01:20> Lab Data MDM Lab Attestation statement: I reviewed the patient's lab results. <EUSEBIA Boss - Last Filed: 05/29/22 01:20> Labs: Lab Results 05/28/22 Range/Units 15:46 Influenza Type A (PCR) NEGATIVE (Negative) Influenza Type B (PCR) NEGATIVE (Negative) RSV RNA Qual (PCR) NEGATIVE (Negative) SARS-CoV-2 RNA (RT-PCR) NEGATIVE (Negative) <EUSEBIA Ch - Last Filed: 05/28/22 15:08> Lab Results 05/28/22 Range/Units 15:46 Influenza Type A (PCR) NEGATIVE (Negative) Influenza Type B (PCR) NEGATIVE (Negative) RSV RNA Qual (PCR) NEGATIVE (Negative) SARS-CoV-2 RNA (RT-PCR) NEGATIVE (Negative) <EUSEBIA Boss - Last Filed: 05/29/22 01:20> Radiology Impression Discussion of test interpretation with radiology: I have reviewed the radiologist's reading. <EUSEBIA Boss - Last Filed: 05/29/22 01:20> Radiologist Impression: EXAMINATION: CHEST 2 VIEWS CLINICAL INFORMATION: cough/nasal congestion COMPARISON: No recent pertinent prior studies are available for comparison. TECHNIQUE: PA and lateral views of the chest obtained.? FINDINGS: The lungs are hypoexpanded with basilar atelectatic changes. No focal infiltrate, effusion, edema, or pneumothorax. Cardiac and mediastinal silhouettes are within normal limits for technique. No acute bony abnormality seen XR/XR chest 2V IMPRESSION: Hypoexpanded with basilar markings more likely due to atelectasis. Dictated By: Miguel Atkins MD Signed By: Electronically signed by Miguel Atkins MD 05/28/22 [id number] <EUSEBIA Boss - Last Filed: 05/29/22 01:20> Discharge Plan Discharge Clinical Impression: Sinusitis <EUSEBIA Ch Last Filed: 05/28/22 15:08> Patient Disposition: Home, Self-Care <EUSEBIA Ch Last Filed: 05/28/22 15:08> Instructions: Sinusitis (ED) <EUSEBIA Ch Last Filed: 05/28/22 15:08> Additional Instructions: Follow up with your primary care provider. Return to the emergency department immediately if your symptoms worsen or if you develop any dizziness, shortness of breath, difficulty breathing, chest pain, blurry vision, loss of vision, nausea, vomiting, abdominal pain, fever, chills, back pain, or any other complaints. Rad un seguimiento con zepeda proveedor de atenci?n primaria. Regrese al departamento de emergencias de inmediato si estuardo s?ntomas empeoran o si presenta mareos, falta de aire, dificultad para respirar, dolor de pecho, visi?n borrosa, p?rdida de la visi?n, n?useas, v?mitos, dolor abdominal, fiebre, escalofr?os, dolor de espalda o cualquier otras quejas. <EUSEBIA Ch Last Filed: 05/28/22 15:08> Prescriptions: New doxycycline hyclate 100 mg tablet 100 mg PO BID 7 Days Qty: 14 0RF No Action hydrocortisone 2.5 % cream with perineal applicator 1 appl DE BID PRN (Reason: hemorrhoids) 30 Days Qty: 30 2RF menthol-zinc oxide [Calmoseptine] 0.44-20.6 % ointment 1 appl topical QID PRN (Reason: wound healing) Qty: 113 0RF hydroxyzine HCl 25 mg tablet 25 mg PO fluticasone propionate 50 mcg/actuation spray,suspension 1 - 2 spray intranasal DAILY PRN nifedipine paste DE BID omeprazole 20 mg capsule,delayed release(DR/EC) 20 mg PO BID 30 Days Qty: 60 6RF simethicone 180 mg capsule 180 mg PO .TIDAC 30 Days Qty: 90 3RF <EUSEBIA Ch - Last Filed: 05/28/22 15:08> Referrals: Rachele Treviño MD [Primary Care Provider] - <EUSEBIA Ch - Last Filed: 05/28/22 15:08> Discharge Date/Time: 05/28/22 19:02 <EUSEBIA Ch - Last Filed: 05/28/22 15:08> Print Language: [place]an <EUSEBIA Ch - Last Filed: 05/28/22 15:08>
[2022-05-28 16:35] LABS: Influenza A PCR NEGATIVE (Negative); Influenza B PCR NEGATIVE (Negative); Resp Syncy Virus RNA Qual PCR NEGATIVE (Negative); SARS COV2 PCR INHOUSE NEGATIVE (Negative)
== END 2022-05-28 19:02 | disposition home or self-care (01) ==
PROVIDERS: Physician Assistant Medical; Emergency Provider Emergency Medicine; PCP Family Medicine
DX: J32.9 Chronic sinusitis, unspecified (principal); R05.9 Cough, unspecified; R09.81 Nasal congestion; Z20.822 Contact with and (suspected) exposure to COVID-19; Z79.899 Other long term (current) drug therapy
CPT/HCPCS: 0241U; 71046; 99281; 99283

== ENCOUNTER 2022-08-24 06:48 | Emergency (ER) | payer OTHER, SELFPAY ==
[2022-08-24 06:54] VITALS: BP 137/83; PULSE 115; RESP 18; TEMP 36.6; O2SAT 99; BMI 48.4
[2022-08-24 07:33] VITALS: BP 130/86; PULSE 94; RESP 20; TEMP 36.8; O2SAT 98
--- NOTE | 2022-08-24 07:34 | PC.NURSE ---
Patient woke up this morning at approximately 0500 feeling anxious and a little nauseous with sweaty hands. Patient states that during this anxiety attack he was feeling some palpitations that have since resolved. Patient drank some [employer] tea and took 1/4 tab hydroxyzine because this medication makes him sleepy. Patient uses an apnea machine that he had to take off during this attack due to increased anxious feelings. Of note patient states that he recently went on a diet where he is cutting out sugar and has been using a sugar substitute and is wondering if this could be the cause of this attack.
--- NOTE | 2022-08-24 08:14 | ED.GENADULT ---
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 Patient states that he woke up at about 3 this morning with an anxiety attack. Patient states that he tried to take some of his anxiety medication but it didn't help. Patient states that he is currently nauseous. Patient denies any dizziness, lightheadedness, abdominal pain, vomiting, fever, chills, blurry vision, double vision, loss of vision, chest pain, difficulty breathing, shortness of breath, back pain, night sweats, pain with urination, increased urinary frequency, increased urinary urgency, blood in his urine or stool, syncope or a near syncopal episode, recent trauma or falls, bowel incontinence, bladder incontinence, bowel retention, bladder retention, or any other complaints at this time. Onset (ago): hour(s) Severity: mild Severity scale (1-10): 2 Relieving factors: none Exacerbating factors: none Associated symptoms: denies other symptoms Treatments prior to arrival: none Related Data Home Medications Medication Instructions Recorded Confirmed hydroxyzine HCl 25 mg tablet 25 mg PO anxiety 08/18/20 09/08/21 fluticasone propionate 50 1 - 2 spray intranasal DAILY PRN 03/17/21 09/08/21 mcg/actuation nasal spray,suspension nifedipine NV BID 04/25/21 09/08/21 Previous Rx's Medication Instructions Recorded omeprazole 20 mg capsule,delayed 20 mg PO BID 30 days #60 caps 08/26/21 release simethicone 180 mg capsule 180 mg PO .TIDAC 30 days #90 caps 08/26/21 hydrocortisone 2.5 % topical cream 1 appl NV BID PRN hemorrhoids 30 11/15/21 with perineal applicator days #30 grams menthol 0.44 %-zinc oxide 20.6 % 1 appl topical QID PRN wound 11/18/21 topical ointment (Calmoseptine) healing #113 grams doxycycline hyclate 100 mg tablet 100 mg PO BID 7 days #14 tabs 05/28/22 ondansetron 4 mg disintegrating 4 mg PO Q8H 3 days #9 tabs 08/24/22 tablet Allergies Allergy/AdvReac Type Severity Reaction Status Date / Time amoxicillin Allergy Unknown dizziness Verified 02/09/22 11:19 penicillin V Allergy Unknown dizziness Verified 02/09/22 11:19 metronidazole AdvReac Mild Confusion Verified 02/09/22 11:19 Review of Systems Constitutional: Constitutional: Reports no additional constitutional complaints, Denies chills, Denies fever(s) and Denies night sweats Eyes: Eyes: Reports no additional eye complaints, Denies blurry vision, Denies change in vision, Denies diplopia, Denies eye discharge, Denies loss of vision and Denies eye pain ENT: Denies dizziness Cardiovascular: Cardiovascular: Reports no additional cardiovascular complaints, Denies chest pain, Denies lightheadedness, Denies Loss of Consciousness and Denies dyspnea Respiratory: Respiratory: Reports no additional respiratory complaints and Denies dyspnea Gastrointestinal: Gastrointestinal: Reports no additional gastrointestinal complaints, Denies abdominal pain, Denies melena, Denies hematochezia, Denies change in bowel habits, Denies change in stool character and Reports nausea Genitourinary: Genitourinary: Reports no additional male genitourinary complaints, Denies hematuria, Denies oliguria, Denies difficulty urinating, Denies dysuria, Denies urinary frequency, Denies urinary hesitancy, Denies urinary incontinence and Denies urinary urgency Musculoskeletal: Musculoskeletal: Reports no additional musculoskeletal complaints, Denies numbness and Denies tingling Neurologic: Denies dizziness, Denies loss of vision, Denies numbness and Denies tingling Psychiatric: Psychiatric: Reports no additional psychiatric complaints and Reports anxiety Endocrine: Endocrine: Reports no additional endocrine complaints Hematologic/Lymphatic: Hematologic/Lymphatic: Reports no additional hematologic/lymphatic complaints Allergic/Immunologic: Allergic/Immunologic: Reports no additional allergic/immunologic complaints PMFSH Past Medical History Attestation statement: The following information was validated with the patient. Source: old records reviewed and nursing notes reviewed Medical History Anxiety GERD (gastroesophageal reflux disease) Hemorrhoids with complication History of COVID-19 Loose stools Morbid obesity Pruritus ani Surgical History History of colonoscopy (03/04/22) History of esophagogastroduodenoscopy (EGD) Family History Family History Father History of diabetes mellitus Mother History of diabetes mellitus Brother History of stomach cancer Social History Social History Alcohol intake: never Patient Tobacco Use Status: Never used Tobacco Smoked in Last 30 Days: No Use of substances other than those prescribed or required for medical reasons: No Advance Directives: No Advance Directives Information Provided: Yes Physical Exam ED Vital Signs: Vital Signs - 24 hr 08/24/22 06:54 08/24/22 07:33 08/24/22 08:56 Temperature 98 F 98.3 F Pulse Rate 115 H 94 86 Respiratory Rate 18 20 20 Blood Pressure 137/83 130/86 130/83 Pulse Oximetry 99 98 97 Oxygen Delivery Method Room Air Room Air Room Air 08/24/22 10:00 Temperature 99.1 F Pulse Rate 80 Respiratory Rate 20 Blood Pressure 112/73 Pulse Oximetry 97 Oxygen Delivery Method Room Air BMI result Body Mass Index 48.4 Const General: cooperative, no acute distress, alert and awake Nutritional Appearance: well nourished Orientation/consciousness: patient oriented x3 Limitations: no limitations HENMT Head: Yes normal to inspection and Yes atraumatic Ears: hearing grossly normal bilaterally and external ears normal General nose exam: Normal external nose present, no nasal discharge noted and no epistaxis Face and sinus: Yes normal facial exam, No abrasion and No laceration Mouth: Normal oral and palatal mucosa present, no drooling and no muffled voice Eyes General: appearance normal, both eyes and all related structures Periorbital: periorbital findings normal Eyelids: Yes eyelids normal Conjunctivae: conjunctivae normal Pupils: Equal, round and reactive pupils present EOM: EOMs intact bilaterally Neck Neck: Yes normal visual inspection, Yes full ROM and Yes no lymphadenopathy Chest Chest palpation & inspection: normal inspection of the chest Resp Effort & Inspection: normal respiratory effort and able to speak in complete sentences Auscultation: clear to auscultation bilaterally Cardio Rate: regular rate Rhythm: regular rhythm GI Inspection: Yes normal to inspection Palpation (GI): Soft to palpation, not firm, nontender, no guarding and not rigid Neuro General: patient oriented x3 and moves all extremities Cranial nerves: Yes Equal, round and reactive pupils present Cognition (Neuro): normal cognition Motor exam (neuro): 5/5 motor strength present throughout Sensory Exam: Normal double simultaneous stimulation for sensation Coordination: [id number] test normal Extrem General: Yes normal to inspection, Yes full ROM and Yes capillary refill normal Psych Appearance: grossly normal Mental Status: mental status grossly normal Affect: normal affect Attitude: cooperative Thought process: Normal thought process present Thought content: Normal thought content present Insight: Good insight present (Psych) Medications Administered Discontinued Medications Generic Name Dose Route Start Last Admin Trade Name Mira PRN Reason Stop Dose Admin Lorazepam 1 mg 08/24/22 08:47 08/24/22 08:57 Lorazepam 1 Mg Tablet PO 08/24/22 08:48 1 mg ONCE ONE Administration Ondansetron HCl 4 mg 08/24/22 08:47 08/24/22 08:57 Ondansetron Odt 4 Mg Tab.Rapdis TRANSLINGU 08/24/22 08:48 4 mg ONCE ONE Administration Medical Decision Making Medical Decision Making [facility] Narrative: Patient is a 47 year old assigned male at with a history of IBS, GERD, and anxiety presenting to the emergency department today with an acute episode of anxiety. Patient's physical exam was unremarkable. Patient's blood work was unremarkable. Patient's EKG was unremarkable. I explained my physical exam findings as well as all test results to the patient. I answered all questions asked by the patient. Patient received PO Ativan and ODT Zofran which he stated helped his symptoms significantly. I stressed the importance of the patient taking his medication as prescribed. I stressed the importance of the patient following up with his primary care provider. I stressed the importance of the patient returning to the emergency department immediately if his symptoms were to worsen or if he were to develop any dizziness, shortness of breath, difficulty breathing, chest pain, blurry vision, loss of vision, nausea, vomiting, abdominal pain, fever, chills, back pain, or any other complaints. Patient verbalized agreement and understanding with this treatment plan and discharge. Differential Diagnosis Differential Diagnoses: The differential diagnosis associated with the presentation includes anxiety Lab Data [facility] Lab Attestation statement: I reviewed the patient's lab results. 08/24/22 08:51 08/24/22 08:51 Labs: Lab Results 08/24/22 08/24/22 08/24/22 Range/Units 08:51 08:51 08:51 WBC 6.8 (4.8-10.8) X10*3/uL RBC 4.96 (4.60-5.80) X10*6/uL Hgb 14.0 (14.0-18.0) g/dl Hct 41.8 L (42.0-52.0) % MCV 84.3 (80.0-98.0) fL MCH 28.2 (27.0-33.0) pg MCHC 33.5 (31.0-36.0) g/dl RDW 13.2 (11.0-16.0) % Plt Count 227 (160-400) X10*3/uL MPV 10.3 (9.4-12.4) fL Immature Gran % (Auto) 0.4 (0.0-0.4) % Neut % (Auto) 66.3 (45-73) % Lymph % (Auto) 23.7 (20-40) % [place] % (Auto) 7.7 (2-11) % Eos % (Auto) 1.2 (0-4) % Baso % (Auto) 0.7 (0-2) % Lymph # (Auto) 1.6 (1.2-4.9) X10*3/uL [place] # (Auto) 0.5 (0.1-1.2) X10*3/uL Eos # (Auto) 0.1 (0.0-0.4) X10*3/uL Baso # (Auto) 0.1 (0.0-0.2) X10*3/uL Abs Immat Gran (auto) 0.03 (0.00-0.03) X10*3/uL Absolute Neuts (auto) 4.5 (2.0-8.3) x10*3/uL Absolute Nucleated RBC 0.000 (0.0-0.012) X10*3/uL Nucleated RBC % (auto) 0.0 (0.0-0.2) /100WBC Sodium 141 (135-145) mmol/L Potassium 4.0 (3.3-5.1) mmol/L Chloride 108 (96-108) mmol/L Carbon Dioxide 26 (22-29) mmol/L Anion Gap 11 L (12-20) BUN 16 (9-16) mg/dL Creatinine 0.84 (0.5-1.4) mg/dL Estim Creat Clear Calc 145.6 Estimated GFR > 60 Random Glucose 140 H (60-115) mg/dL Calcium 9.2 (8.4-10.2) mg/dL Magnesium 2.3 (1.6-2.6) mg/dL Total Bilirubin 0.8 (0.0-1.0) mg/dL AST 31 (5-37) U/L ALT 61 H (0-40) U/L Alkaline Phosphatase 78 (39-117) U/L Troponin I High Sens < 3.5 (<3.5-35.0) ng/L Total Protein 6.7 (6.5-8.0) g/dL Albumin 4.1 (3.5-5.0) g/dL Independent Interpretation I performed an independent interpretation of an: EKG Interpretation: Vent. Rate: 084 BPM ? ? Atrial Rate: 084 BPM P-R Int: 134 ms? QRS Dur: 104 ms QT Int: 374 ms ? ? ? P-R-T Axes: 044 -03 022 degrees QTc Int: 441 ms ? Normal sinus rhythm Incomplete right bundle branch block Borderline ECG When compared with ECG of 22-FEB-2017 15:49, No significant change was found DD/ [id number] Discharge Plan Discharge Clinical Impression: Anxiety Patient Disposition: Home, Self-Care Instructions: Anxiety (ED) Additional Instructions: Follow up with your primary care provider. Return to the emergency department immediately if your symptoms worsen or if you develop any dizziness, shortness of breath, difficulty breathing, chest pain, blurry vision, loss of vision, nausea, vomiting, abdominal pain, fever, chills, back pain, or any other complaints. Rad un seguimiento con zepeda proveedor de atenci?n primaria. Regrese al departamento de emergencias de inmediato si estuardo s?ntomas empeoran o si presenta mareos, falta de aire, dificultad para respirar, dolor de pecho, visi?n borrosa, p?rdida de la visi?n, n?useas, v?mitos, dolor abdominal, fiebre, escalofr?os, dolor de espalda o cualquier otras quejas. Prescriptions: New ondansetron 4 mg tablet,disintegrating 4 mg PO Q8H 3 Days Qty: 9 0RF No Action hydrocortisone 2.5 % cream with perineal applicator 1 appl NV BID PRN (Reason: hemorrhoids) 30 Days Qty: 30 2RF menthol-zinc oxide [Calmoseptine] 0.44-20.6 % ointment 1 appl topical QID PRN (Reason: wound healing) Qty: 113 0RF doxycycline hyclate 100 mg tablet 100 mg PO BID 7 Days Qty: 14 0RF hydroxyzine HCl 25 mg tablet 25 mg PO fluticasone propionate 50 mcg/actuation spray,suspension 1 - 2 spray intranasal DAILY PRN nifedipine paste NV BID omeprazole 20 mg capsule,delayed release(DR/EC) 20 mg PO BID 30 Days Qty: 60 6RF simethicone 180 mg capsule 180 mg PO .TIDAC 30 Days Qty: 90 3RF Referrals: Rachele Treviño MD [Primary Care Provider] - Stand Alone Forms: Work/School Release Interventions: ED Discharge Assessment Last Done: 08/24/22 10:01 Discharge Date/Time: 08/24/22 10:02 Print Language: Portuguese
--- NOTE | 2022-08-24 08:22 | ECG_ITS ---
Test Reason : HYPERTENSION Blood Pressure : / mmHG Vent. Rate : 084 BPM Atrial Rate : 084 BPM P-R Int : 134 ms QRS Dur : 104 ms QT Int : 374 ms P-R-T Axes : 044 -03 022 degrees QTc Int : 441 ms Normal sinus rhythm Incomplete right bundle branch block Borderline ECG When compared with ECG of 22-FEB-2017 15:49, No significant change was found Referred By: Tatiana Spring Electronically Signed By:Krishna Ryan
[2022-08-24 08:55] LABS: MANUAL DIFF FLAG NO
[2022-08-24 08:56] VITALS: BP 130/83; PULSE 86; RESP 20; O2SAT 97
[2022-08-24 08:56] LABS: Basophils Absolute Auto 0.1 X10*3/uL (0.0-0.2); Basophils Percent Auto 0.7 % (0-2); Eosinophils Absolute Auto 0.1 X10*3/uL (0.0-0.4); Eosinophils Percent Auto 1.2 % (0-4); Hematocrit 41.8 % (42.0-52.0); Imm Gran Abs Auto 0.03 X10*3/uL (0.00-0.03); Imm Gran Pct Auto 0.4 % (0.0-0.4); Lymphocytes Absolute Auto 1.6 X10*3/uL (1.2-4.9); Lymphocytes Percent Auto 23.7 % (20-40); Mean Corpuscular HGB Conc 33.5 g/dl (31.0-36.0); Mean Corpuscular Hemoglobin 28.2 pg (27.0-33.0); Mean Corpuscular Volume 84.3 fL (80.0-98.0); Mean Platelet Volume 10.3 fL (9.4-12.4); Monocytes Absolute Auto 0.5 X10*3/uL (0.1-1.2); Monocytes Percent Auto 7.7 % (2-11); Neutrophils Absolute Auto 4.5 x10*3/uL (2.0-8.3); Neutrophils Percent Auto 66.3 % (45-73); Platelet Count 227 X10*3/uL (160-400); Red Blood Count 4.96 X10*6/uL (4.60-5.80); Red Cell Distribution Width 13.2 % (11.0-16.0); White Blood Count 6.8 X10*3/uL (4.8-10.8)
[2022-08-24] MEDS: LORazepam 1 MG TABLET PO (08:57)
[2022-08-24] MEDS: Ondansetron ODT 4 MG TAB.RAPDIS TRANSLINGU (08:57)
[2022-08-24 09:14] LABS: Alanine Aminotransferase 61 U/L (0-40); Albumin Level 4.1 g/dL (3.5-5.0); Alkaline Phosphatase 78 U/L (39-117); Anion Gap 11 (12-20); Aspartate Amino Transferase 31 U/L (5-37); Bilirubin Total 0.8 mg/dL (0.0-1.0); Blood Urea Nitrogen 16 mg/dL (9-16); Calcium 9.2 mg/dL (8.4-10.2); Carbon Dioxide 26 mmol/L (22-29); Chloride 108 mmol/L (96-108); Creatinine Clr Calc Pharmacy 145.6; Estimated Glomerular Filt Rate > 60; Glucose Random 140 mg/dL (60-115); Magnesium 2.3 mg/dL (1.6-2.6); Sodium 141 mmol/L (135-145); Total Protein 6.7 g/dL (6.5-8.0)
[2022-08-24 09:25] LABS: Troponin-I High Sensitivity < 3.5 ng/L (<3.5-35.0)
[2022-08-24 10:00] VITALS: BP 112/73; PULSE 80; RESP 20; TEMP 37.3; O2SAT 97
== END 2022-08-24 10:02 | disposition home or self-care (01) ==
PROVIDERS: Physician Assistant Medical; Emergency Provider Emergency Medicine; PCP Family Medicine
DX: F41.9 Anxiety disorder, unspecified (principal); I10 Essential (primary) hypertension; Z79.899 Other long term (current) drug therapy; E66.01 Morbid (severe) obesity due to excess calories; Z68.42 Body mass index [BMI] 45.0-49.9, adult
CPT/HCPCS: 36415; 80053; 83735; 84484; 85025; 93005; 99283; 99284

== ENCOUNTER 2022-09-22 08:40 | Outpatient (REF) | payer OTHER, SELFPAY ==
[2022-09-25 13:28] LABS: Alpha Fetoprotein 1.8 ng/mL (<6.1)
== END 2022-09-22 08:41 | disposition home or self-care (01) ==
LOC: HO.LAB 08:40
PROVIDERS: PCP Family Medicine; Visit Provider Nurse Practitioner
DX: Z01.818 Encounter for other preprocedural examination (principal); R10.13 Epigastric pain; K76.0 Fatty (change of) liver, not elsewhere classified; K58.2 Mixed irritable bowel syndrome; K60.2 Anal fissure, unspecified; K21.9 Gastro-esophageal reflux disease without esophagitis
CPT/HCPCS: 36415; 82105; 99212

== ENCOUNTER 2022-09-25 09:36 | Outpatient (REF) | payer OTHER, SELFPAY | END 2022-09-25 09:37 | disposition home or self-care (01) | LOC: HO.LNP 09:36 | PROVIDERS: Visit Provider Nurse Practitioner | DX: K76.0 Fatty (change of) liver, not elsewhere classified (principal) | CPT/HCPCS: 87338 ==

== ENCOUNTER 2022-10-16 10:39 | Outpatient (REF) | payer OTHER, SELFPAY ==
--- NOTE | ~2022-10-16 | XR_ITS ---
EXAMINATION: XR KNEE, RIGHT CLINICAL INFORMATION: Right knee and calf pain. COMPARISON: None available. TECHNIQUE: Four views of the right knee. FINDINGS: Mild medial compartment joint space narrowing. Tiny medial and patellofemoral compartment marginal osteophytes. No osseous erosion. No fracture or dislocation. No joint effusion. No abnormal soft tissue calcification. XR/XR knee RT 4V IMPRESSION: Minimal medial and patellofemoral compartment arthrosis.
== END 2022-10-16 10:40 | disposition home or self-care (01) ==
LOC: HO.HHCX 10:39
PROVIDERS: PCP Family Medicine; Referring Provider Emergency Medicine; Visit Provider Emergency Medicine
DX: M25.561 Pain in right knee (principal)
CPT/HCPCS: 73564

== ENCOUNTER 2022-10-31 08:09 | Outpatient (REF) | payer OTHER, SELFPAY ==
--- NOTE | ~2022-10-31 | US_ITS ---
EXAMINATION: US ABDOMEN LIMITED CLINICAL INFORMATION: Mixed irritable bowel syndrome. Steatosis of the liver. COMPARISON: Limited abdominal ultrasound 12/10/2021. Ultrasound abdomen complete 04/07/2021. TECHNIQUE: Real-time imaging of the right upper quadrant abdominal viscera. FINDINGS: PANCREAS: Normal. LIVER: The liver is enlarged measuring 22 cm. The liver contour is normal. There is diffuse echogenic liver with focal fatty sparing adjacent to gallbladder. No focal solid hepatic lesion. There is no intrahepatic biliary duct dilatation seen. GALLBLADDER: Normal. The gallbladder is physiologically distended without evidence of stones, sludge, polyps, wall thickening or pericholecystic fluid. COMMON BILE DUCT: Normal in caliber measuring 0.4 cm in diameter. RIGHT KIDNEY: No hydronephrosis. No renal calculi or focal parenchymal lesions. The kidney measures 13.2 cm in maximum dimension. A duplicated right renal system is suspected. FREE FLUID: None. US/US abdomen limited IMPRESSION: 1. Diffuse hepatic steatosis with focal fatty sparing adjacent to gallbladder. 2. Rest of the limited right upper quadrant ultrasound is unremarkable.
== END 2022-10-31 08:10 | disposition home or self-care (01) ==
LOC: HO.US 08:09
PROVIDERS: PCP Family Medicine; Visit Provider Nurse Practitioner
DX: K76.0 Fatty (change of) liver, not elsewhere classified (principal); K58.2 Mixed irritable bowel syndrome
CPT/HCPCS: 76705

== ENCOUNTER 2023-01-10 07:46 | Outpatient (REF) | payer OTHER, SELFPAY ==
--- NOTE | ~2023-01-10 | US_ITS ---
EXAMINATION: US ABDOMEN COMPLETE CLINICAL INFORMATION: Nonalcoholic steatohepatitis. Transaminitis. COMPARISON: Limited abdominal ultrasound 10/31/2022. Ultrasound abdomen complete 04/07/2021. TECHNIQUE: Real-time imaging of the abdominal viscera. FINDINGS: PANCREAS: Visualized portions of the pancreas are unremarkable. The pancreatic tail is obscured by bowel gas. ABDOMINAL AORTA: The proximal, mid, and distal segments are normal in caliber. INFERIOR VENA CAVA: Visualized portions are normal. LIVER: Liver is enlarged measuring 20.2 cm in span. The liver contour is normal. 1 cm simple left hepatic lobe cyst. Echogenic liver with focal fatty sparing which could be seen in the setting of hepatic steatosis. There is no intrahepatic biliary duct dilatation seen. GALLBLADDER: Normal. The gallbladder is physiologically distended without evidence of stones, sludge, polyps, wall thickening or pericholecystic fluid. COMMON BILE DUCT: Normal in caliber measuring 0.3 cm in diameter. RIGHT KIDNEY: Normal. No hydronephrosis. No renal calculi or focal parenchymal lesions. The kidney measures 13.6 cm in maximum dimension. LEFT KIDNEY: No hydronephrosis. No renal calculi or focal parenchymal lesions. The kidney measures 13.6 cm in maximum dimension. Suspect a subcentimeter peripelvic renal cyst no follow-up imaging recommended. SPLEEN: Normal. The spleen measures 11.0 cm in maximum dimension. FREE FLUID: None. US/US abdomen complete IMPRESSION: 1. Hepatomegaly and hepatic steatosis.
== END 2023-01-10 07:47 | disposition home or self-care (01) ==
LOC: HO.US 07:46
PROVIDERS: PCP Family Medicine; Visit Provider Family Medicine
DX: K76.0 Fatty (change of) liver, not elsewhere classified (principal)
CPT/HCPCS: 76700

== ENCOUNTER 2023-03-14 11:28 | Day surgery (SDC) | payer OTHER, SELFPAY ==
[2023-03-12 16:48] VITALS: BMI 47.9
--- NOTE | 2023-03-14 11:36 | P.HPSUR_ITS ---
Pre-Procedural Eval Section A Date of Service: 03/14/23 Section B Chief Complaint: Epigastric pain Relevant Family History (Specify if Yes): No Relevant Social History: None Present Medications: see Short Stay Collaborative assessment Medical History: Significant History (Anxiety GERD (gastroesophageal reflux disease) Hemorrhoids with complication History of COVID-19 Loose stools Morbid obesity Pruritus ani) History of Previous Operations: Relevant previous surgery/procedure and date(s) (egd,colo) Allergies: Allergies Allergy/AdvReac Type Severity Reaction Status Date / Time amoxicillin Allergy Unknown dizziness Verified 09/22/22 08:53 penicillin V Allergy Unknown dizziness Verified 09/22/22 08:53 metronidazole AdvReac Mild Confusion Verified 09/22/22 08:53 Review of Systems Sugical H&P ROS: Negative: Constitution, Cardiovascular, Respiratory, N eurological, Psychiatric, Hem-Onc, Allergic/Immunologic, Gastrointestinal, Genitourinary, Musculoskeletal, Integumentary, Endocrine and Eyes/Ears/Nose/Throat Exam Surgical H&P Exam: Normal: HEENT, Normal: Heart, Normal: Lungs, Normal: Extremities, Normal: Abdomen, Normal: Skin and Normal: Neurological Plan Diagnosis/Plan: Unchanged I have reviewed the history and physical and performed a pertinent physical examination on my patient. No changes have occurred unless specified. Time Spent With Patient Time: Total time managing care of this patient today ____ minutes.
[2023-03-14 11:37] VITALS: BP 141/83; PULSE 99; RESP 16; TEMP 36.6; O2SAT 99
--- NOTE | 2023-03-14 11:40 | HO.ANESPROP2 ---
[facility] Active Problems Active Problems: All Active Problems (Updated 09/28/22 @ 08:29 by JT Parra) Pre-op examination (Acute) Epigastric pain (Acute) Irritable bowel syndrome with both constipation and diarrhea (Acute) Pruritus ani (Acute) Hemorrhoids with complication (Acute) Hepatic steatosis (Acute) Abdominal bloating (Acute) Rectal candidiasis (Acute) Bleeding hemorrhoids (Acute) Rectal fissure (Acute) GERD (gastroesophageal reflux disease) (Acute) Morbid obesity (Acute) Anxiety (Acute) Past Medical History Medical History Anxiety GERD (gastroesophageal reflux disease) Hemorrhoids with complication History of COVID-19 Loose stools Morbid obesity Pruritus ani Family History Family History Father History of diabetes mellitus Mother History of diabetes mellitus Brother History of stomach cancer Family history of problems with anesthesia: No Surgical History Surgical History History of colonoscopy (08/12/21) History of esophagogastroduodenoscopy (EGD) History of Problems with Anesthesia: No Social History Social History Alcohol intake: never Patient Tobacco Use Status: Never used Tobacco Advance Directives: No Advance Directives Information Provided: Yes Meds Allergies Allergy/AdvReac Type Severity Reaction Status Date / Time amoxicillin Allergy Unknown dizziness Verified 09/22/22 08:53 penicillin V Allergy Unknown dizziness Verified 09/22/22 08:53 metronidazole AdvReac Mild Confusion Verified 09/22/22 08:53 Home Medications Medication Instructions Recorded Confirmed Last Taken Type fluticasone propionate 50 1 - 2 spray intranasal DAILY PRN 03/17/21 09/08/21 Unknown History mcg/actuation nasal spray,suspension nifedipine DC BID 04/25/21 09/08/21 Unknown History famotidine 20 mg tablet 20 mg PO BEDTIME 09/22/22 Unknown History Exam Exam Date and Time: March 14, 2023 1140 Height,Weight and Vital Signs: Height 5 ft 6 in Weight 134.717 kg Airway Mallampati Class: IV TM Dist: >3cm Neck ROM: Full Assessment and Plan Assessment Anesthesia Assessment: Anesthesia Plan Discussed and Chart Reviewed Final Anesthetic Review Family History of Problems with Anesthesia: No History of Problems with Anesthesia: No NPO: Yes ASA Class: III Final Preanesthetic Review: No Changes in Pt Med Stat, Meds/Allgs Chart Reviewed, Consent Obtained/Reviewed and Anes Risks/Benef Reviewed Patient Risk: Intermediate Procedure Risk: Low Anesthetic Plan Anesthetic Plan: MAC: Disposition: Standard PACU
--- NOTE | 2023-03-14 12:22 | W.PM.OPN ---
Operative Note Operative Note Date of Service: 03/14/23 Narrative: Procedure Description: EGD Indication: hx of gastric polyp Anesthesia: MAC FLEXIBLE TRANSORAL UPPER GASTROINTESTINAL ENDOSCOPY UPPER ENDOSCOPY Consent: Indications for the procedure and potential complications of bleeding, perforation, reaction to medications and missed diagnosis were discussed with the patient and informed consent was obtained. Instrument: Olympus GIF H 190 J mid size upper endoscope Monitoring: Vital signs and clinical assessment, continuous EKG monitoring, Pulse oximetry, Carbon Dioxide monitoring and blood pressure monitoring were done throughout the procedure. Procedure: The patient was placed in the left lateral decubitis position and pre-procedure medications were administered and a bite block was placed. The endoscope was inserted into the mouth and advanced under direct vision to the third part of duodenum. A careful inspection was made as the upper endoscope was withdrawn including a retroflexed examination of the proximal stomach; Findings and interventions are described below. Findings: Larynx:normal Esophagus: GE junction at 40 cm, diaphragm hiatus at 40 cm, possible short segment barretts with irregular Z line, bx taken, LES also very lax Stomach: Patchy gastric erythema with atrophy. Biopsies were obtained from antrum, angularis, lesser curve, greater curve and fundus. Grade 3 flap valve on retroflexed examination of the cardia. At the antral area close to the pyloric outlet there was a 15-18 mm sessile polyp which was prolapsing in and out of the pylorus, this was removed with combination of hot and cold snare and then 3 clips applied for hemostasis. Duodenum: Normal bulb and descending duodenum, Intervention: Biopsies as noted above Impression/Findings: Lax LEs atrophic gastritis (prior h pylori testing neg) Gastric polyp--might have been causing his abdominal pain PLAN: f/u path, rept EGD in about 3-6 months or so
[2023-03-14 12:30] VITALS: BP 135/84; PULSE 108; RESP 16; TEMP 36.3; O2SAT 97
[2023-03-14 12:45] VITALS: BP 124/87; PULSE 86; RESP 16; O2SAT 97
[2023-03-14 13:01] VITALS: BP 133/87; PULSE 81; RESP 17; TEMP 36.1; O2SAT 97
== END 2023-03-14 14:27 | disposition home or self-care (01) ==
PROVIDERS: PCP Family Medicine; Visit Provider Internal Medicine Gastroenterology
PROC: 0DJ08ZZ Inspection of Upper Intestinal Tract, Via Natural or Artificial Opening Endoscopic (ICD-10-PCS; CPT 43235; principal; 2023-03-14 13:00)
DX: K31.7 Polyp of stomach and duodenum (principal); K29.40 Chronic atrophic gastritis without bleeding; K22.4 Dyskinesia of esophagus; R10.13 Epigastric pain; K21.9 Gastro-esophageal reflux disease without esophagitis; K58.2 Mixed irritable bowel syndrome; K76.0 Fatty (change of) liver, not elsewhere classified; K60.2 Anal fissure, unspecified; E66.01 Morbid (severe) obesity due to excess calories; Z68.42 Body mass index [BMI] 45.0-49.9, adult
CPT/HCPCS: 43239; 43251; 88305; 88342

== ENCOUNTER → 2023-03-14 11:28 | Outpatient (BNV) | payer OTHER, SELFPAY | PROVIDERS: PCP Family Medicine; Visit Provider Internal Medicine Gastroenterology | DX: K31.7 Polyp of stomach and duodenum (principal); K29.70 Gastritis, unspecified, without bleeding | CPT/HCPCS: 43239; 43251 ==

== ENCOUNTER 2023-03-28 11:24 | Outpatient (AMB) | payer OTHER, SELFPAY ==
--- NOTE | 2023-03-28 11:27 | A.OFFVIS_ITS ---
Intake Vital Signs 03/28/23 11:31 Height 5 ft 6 in Weight 287 lb 14.779 oz BMI 46.5 BP 136/78 Blood Pressure Location Lt brachial Position Sitting Pulse 86 Intake Visit Reasons: S/P EGD; Dr. Tee Intake Note: Patient presents to in office visit today in follow up of EGD. CC: Patient reports he was feeling tired since after procedure and he believes it is related to the anesthesia. He reports that Omeprazole helps with heartburn . Patient states that he is doing a treatment called Natural tamiko and has been feeling very good . Creative Lead Required: Yes Allergies amoxicillin Allergy (Unknown, Verified 03/28/23 11:40) dizziness penicillin V Allergy (Unknown, Verified 03/28/23 11:40) dizziness metronidazole Adverse Reaction (Mild, Verified 03/28/23 11:40) Confusion HPI S/P EGD; Dr. Tee HPI Details Assessment & Plan (1) Epigastric pain: Code(s): R10.13 - Epigastric pain Plan: [place] #Antonina LIve HE says his is doing ok with his rectal fissures, stooling is controlled and he continues to use his OTC cream. He is using a cream from the that seems to contain Policresulen (an herbal cream that seems to be something of an astringent) and lidocaine. This is working well for him and controlling his hemorrhoids. He continues on omeprazole 20mg bid, but started having anxiety and this upset his stomach more (causing a loop of anxiety and dyspepsia) so his PCP also started him on famotidine and hydroxyzine (he has a capsule form but wants tablets and I change this for him). He has worsening problems with upset stomach if he eats hot or peppery things and it can be so bad that his hands and feet sweat. At times he will take an extra omeprazole. He had an EGD in 2019 and a gastric nodule was removed that was a hyperplastic gastric polyp, HP was negative. This was performed by Dr. Tee. There are no prior problems with anesthesia or sedation. He is going for FORREST testing and is [place], he had trouble coming out of the sedation at the most recent colonoscopy and felt bad for a week afterwards, no cardiac problems. NO ID problems Will get HP stool as well. Not diabetic. Stopped simethicone because he found he was lactose intolerant and this was causing the bloating. Next colonoscopy due in 2026 After US ordered today to explore his gastric complaints as well as an EGD ordered today to (2) Hepatic steatosis: Comment: 11/2018 LFT's normal, AFP not elevated, a utoimmune work up neg, US 11/2018 some fatty replacement normal GB. fERRITIN 181, GGT 37, AFP 2.0 Laboratory Tests Laboratory Tests 08/24/22 Plt Count 227 Estimated GFR > 60 Total Bilirubin 0.8 AST 31 ALT 61 H Alkaline Phosphatase 78 Alpha Fetoprotein 1.8 US ABD 12/21/21? MPRESSION: Mild hepatomegaly with hepatic steatosis. No focal lesion seen. ? Visualized pancreas, gallbladder and the right kidneys unremarkable. ? No change from previous study 04/07/2021 Code(s): K76.0 - Fatty (change of) liver, not elsewhere classified (3) Irritable bowel syndrome with both c onstipation and diarrhea: Code(s): K58.2 - Mixed irritable bowel syndrome (4) Rectal fissure: Code(s): K60.2 - Anal fissure, unspecified (5) GERD (gastroesophageal reflux diseas e): Code(s): K21.9 - Gastro-esophageal reflux disease without esophagitis (6) Pre-op examination: Code(s): Z01.818 - Encounter for other preprocedural examination Orders: Orders H pylori Ag Stool 09/25/22 K76.0 - Fatty (bruna nge of) liver, not elsewhere classif ied Alpha Fetoprotein 09/22/22 K76.0 - Fatty (bruna nge of) liver, not elsewhere classif ied, R10.13 - Epig astric pain US abdomen limited 09/22/22 K58.2 - Mixed irri table bowel syndro me, K76.0 - Fatty (change of) liver, not elsewhere cla ssified Medications: Changed From hydroxyzine HCl 25 mg PO anxiety To hydroxyzine HCl Pt can not swallo w capsule form, ta blet only please 25 mg PO TID PRN 90 tabs 3RF anxiet y Refilled omeprazole 20 mg PO BID 30 d ays 60 caps 6RF K21.9 - Gastro-eso phageal reflux dis ease without esoph agitis simethicone 180 mg PO .TIDAC 30 days 90 caps 3R F R14.0 - Abdominal distension (gaseou s) LABS: Laboratory Tests 09/22/22 09/25/22 09:59 08:00 Alpha Fetoprotein 1.8 Stool H. pylori Ag negative .. ULTRASOUND THE ABDOMEN 01/11/23 FINDINGS: PANCREAS: Visualized portions of the pancreas are unremarkable. The pancreatic tail is obscured by bowel gas. ABDOMINAL AORTA: The proximal, mid, and distal segments are normal in caliber. INFERIOR VENA CAVA: Visualized portions are normal. LIVER: Liver is enlarged measuring 20.2 cm in span. The liver contour is normal. 1 cm simple left hepatic lobe cyst. Echogenic liver with focal fatty sparing which could be seen in the setting of hepatic steatosis. There is no intrahepatic biliary duct dilatation seen. GALLBLADDER: Normal. The gallbladder is physiologically distended without evidence of stones, sludge, polyps, wall thickening or pericholecystic fluid. COMMON BILE DUCT: Normal in caliber measuring 0.3 cm in diameter. RIGHT KIDNEY: Normal. No hydronephrosis. No renal calculi or focal parenchymal lesions. The kidney measures 13.6 cm in maximum dimension. LEFT KIDNEY: No hydronephrosis. No renal calculi or focal parenchymal lesions. The kidney measures 13.6 cm in maximum dimension. Suspect a subcentimeter peripelvic renal cyst no follow-up imaging recommended. SPLEEN: Normal. The spleen measures 11.0 cm in maximum dimension. FREE FLUID: None. US/US abdomen complete IMPRESSION: 1. Hepatomegaly and hepatic steatosis. EGD 03/14/23 Findings: Larynx:normal Esophagus: GE junction at 40 cm, diaphragm hiatus at 40 cm, possible short segment barretts with irregular Z line, bx taken, LES also very lax Stomach: Patchy gastric erythema with atrophy. Biopsies were obtained from an trum, angularis, lesser curve, greater curve and fundus. Grade 3 flap valve on retroflexed examination of the cardia. At the antral area close to the pyloric outlet there was a 15-18 mm sessile polyp which was prolapsing in and out of the pylorus, this was removed with combination of hot and cold snare and then 3 clips applied for hemostasis. Duodenum: Normal bulb and descending duodenum, Intervention: Biopsies as noted above Impression/Findings: Lax LEs atrophic gastritis (prior h pylori testing neg) Gastric polyp--might have been causing his abdominal pain PLAN: f/u path, rept EGD in about 3-6 months or so BIOPSY Received: 03/14/23 Diagnosis A. Stomach, antral polyp: Hyperplastic mucosal polyp with background moderate chronic active inflammation; no Helicobacter organisms seen. B. Stomach, antrum, biopsy: Antral-type and oxyntic mucosa with moderate chronic inactive inflammation; no Helicobacter organisms seen. C. Stomach, angularis, biopsy: Antral-type and oxyntic mucosa with moderate chronic inactive inflammation and focal intestinal metaplasia; negative for dysplasia; no Helicobacter organisms seen. D. Stomach, greater curvature, biopsy: Oxyntic mucosa with mild chronic inactive inflammation; no Helicobacter organisms seen. E. Stomach, lesser curvature, biopsy: Oxyntic mucosa with mild chronic inactive inflammation; no Helicobacter organisms seen. F. Stomach, fundus, biopsy: Oxyntic mucosa with mild chronic inactive inflammation; no Helicobacter organisms seen. G. GE junction, biopsy: - Cardiofundic-type mucosa with mild chr onic inactive inflammation; no intestinal metaplasia seen. - Squamous mucosa within normal limits TODAY'S VISIT [place] [employer] He says he is doing better now, he has cut out all spicy foods and is eating simple foods. He says he takes a powder calcium supplement before bed, and he feels this is controlling his IBS and helping him to sleep. He continues on his omeprazole 20 mg twice a day and he has famotidine for breakthrough for his GERD, and will likely needs this unless he can lose weight. He has also used simethicone in the past but he found that this was worsening his bloating so it was discontinued. He tolerated the EGD well, and is agreeable to the 3-6 mos follow up. The only problem he had was a feeling of pressure in my head when they gave me the anesthesia, but no lasting malaise like he had after his colonoscopy. We review the liver labs, and there does not seem to be any progression of disease. However I still advocate for slow, steady weight loss to best protect his overall health and his liver. He does not drink ETOH. ROV 6 mos. [facility] Medical History Pruritus ani Hemorrhoids with complication History of COVID-19 Loose stools GERD (gastroesophageal reflux disease) Morbid obesity Anxiety Surgical History History of colonoscopy (08/12/21) History of esophagogastroduodenoscopy (EGD) Family History Father History of diabetes mellitus Mother History of diabetes mellitus Brother History of stomach cancer Social History Alcohol intake: never Patient Tobacco Use Status: Never used Tobacco Review of Systems Const Denies fatigue, Denies fever(s), Denies night sweats, Denies poor appetite and Denies weight loss ENT Reports Normal hearing present, Denies dental pain, Denies dysphagia, Denies hearing loss, Denies mouth pain, Denies odynophagia, Denies throat swelling, Denies tongue swelling and Reports other (Dentition adequate) Card Reports no additional complaints Resp Reports no additional complaints GI Denies abdominal pain, Denies melena, Denies bloating, Denies hematochezia, Denies constipation, Denies GI cramping, Denies dysphagia, Denies excessive flatus, Denies early satiety, Reports heartburn, Reports diarrhea, Denies nausea, Denies odynophagia, Denies vomiting and Denies hematemesis Skin/Breast Denies pruritus, Denies lesions, Denies rash and Denies jaundice Neuro Reports Normal hearing present and Denies Abnormal speech present Endo Denies fatigue Aller/Immun Denies throat swelling and Denies tongue swelling Physical Exam Vital Signs: Last Vital Signs Pulse 86 10/18/23 11:31 BP 136/78 03/28/23 11:31 BMI result Body Mass Index 46.5 Const General: cooperative, no acute distress, well developed and well groomed Nutritional Appearance: well nourished and obese morbidly obese Orientation/consciousness: oriented to person, oriented to place and oriented to time Limitations: language barrier HEENT Head: Yes normocephalic and Yes atraumatic Eyes General: appearance normal, both eyes and all related structures Pupils: Equal, round and reactive pupils present Neck Neck: Yes normal visual inspection and Yes no lymphadenopathy Thyroid: Thyroid normal Resp Effort & Inspection: normal respiratory effort and able to speak in complete sentences Auscultation: clear to auscultation bilaterally Cardio Rate: regular rate Rhythm: regular rhythm Heart sounds: Normal, physiologic split S2 sound present Peripheral pulses: radial pulses present and posterior tibial pulses present GI Inspection: No distended, Yes Abdominal panniculus present and Yes obesity Palpation (GI): Soft to palpation, nontender, no guarding, not rigid and No hepatosplenomegaly present Percussion: Yes normal to percussion Auscultation: normal bowel sounds Rectal Exam - Male: Yes deferred Skin General skin exam: no rashes or lesions noted, turgor normal, skin not dry, no jaundice, No spider nevi and no striae Rashes: no rashes Nails: normal Neuro General: oriented to person, oriented to place and oriented to time Cranial nerves: Yes Equal, round and reactive pupils present and Yes Normal hearing present Speech: No Abnormal speech present Extrem General: Yes normal to inspection, No clubbing, No cyanosis and No edema Psych Appearance: grossly normal and well kempt Mental Status: mental status grossly normal Speech and movement: Normal speech and movement present Affect: normal affect Attitude: cooperative Thought process: Normal thought process present and not confabulating Thought content: Normal thought content present Insight: Limited insight present (Psych) Judgement: Limited judgement present (Psych) Results Reviewed Results Reviewed: Laboratory Tests 09/22/22 09/25/22 09:59 08:00 Alpha Fetoprotein 1.8 Stool H. pylori Ag negative .. ULTRASOUND THE ABDOMEN 01/11/23 FINDINGS: PANCREAS: Visualized portions of the pancreas are unremarkable. The pancreatic tail is obscured by bowel gas. ABDOMINAL AORTA: The proximal, mid, and distal segments are normal in caliber. INFERIOR VENA CAVA: Visualized portions are normal. LIVER: Liver is enlarged measuring 20.2 cm in span. The liver contour is normal. 1 cm simple left hepatic lobe cyst. Echogenic liver with focal fatty sparing which could be seen in the setting of hepatic steatosis. There is no intrahepatic biliary duct dilatation seen. GALLBLADDER: Normal. The gallbladder is physiologically distended without evidence of stones, sludge, polyps, wall thickening or pericholecystic fluid. COMMON BILE DUCT: Normal in caliber measuring 0.3 cm in diameter. RIGHT KIDNEY: Normal. No hydronephrosis. No renal calculi or focal parenchymal lesions. The kidney measures 13.6 cm in maximum dimension. LEFT KIDNEY: No hydronephrosis. No renal calculi or focal parenchymal lesions. The kidney measures 13.6 cm in maximum dimension. Suspect a subcentimeter peripelvic renal cyst no follow-up imaging recommended. SPLEEN: Normal. The spleen measures 11.0 cm in maximum dimension. FREE FLUID: None. US/US abdomen complete IMPRESSION: 1. Hepatomegaly and hepatic steatosis. EGD 03/14/23 Findings: Larynx:normal Esophagus: GE junction at 40 cm, diaphragm hiatus at 40 cm, possible short segment barretts with irregular Z line, bx taken, LES also very lax Stomach: Patchy gastric erythema with atrophy. Biopsies were obtained from antrum, angularis, lesser curve, greater curve and fundus. Grade 3 flap valve on retroflexed examination of the cardia. At the antral area close to the pyloric outlet there was a 15-18 mm sessile polyp which was prolapsing in and out of the pylorus, this was removed with combination of hot and cold snare and then 3 clips applied for hemostasis. Duodenum: Normal bulb and descending duodenum, Intervention: Biopsies as noted above Impression/Findings: Lax LEs atrophic gastritis (prior h pylori testing neg) Gastric polyp--might have been causing his abdominal pain PLAN: f/u path, rept EGD in about 3-6 months or so BIOPSY Received: 03/14/23 Diagnosis A. Stomach, antral polyp: Hyperplastic mucosal polyp with background moderate chronic active inflammation; no Helicobacter organisms seen. B. Stomach, antrum, biopsy: Antral-type and oxyntic mucosa with moderate chronic inactive inflammation; no Helicobacter organisms seen. C. Stomach, angularis, biopsy: Antral-type and oxyntic mucosa with moderate chronic inactive inflammation and focal intestinal metaplasia; negative for dysplasia; no Helicobacter organisms seen. D. Stomach, greater curvature, biopsy: Oxyntic mucosa with mild chronic inactive inflammation; no Helicobacter organisms seen. E. Stomach, lesser curvature, biopsy: Oxyntic mucosa with mild chronic inactive inflammation; no Helicobacter organisms seen. F. Stomach, fundus, biopsy: Oxyntic mucosa with mild chronic inactive inflam mation; no Helicobacter organisms seen. G. GE junction, biopsy: - Cardiofundic-type mucosa with mild chronic inactive inflammation; no intestinal metaplasia seen. - Squamous mucosa within normal limits Assessment & Plan Assessment & Plan (1) Hepatic steatosis: Comment: 11/2018 LFT's normal, AFP not elevated, autoimmune work up neg, US 11/2018 some fatty replacement normal GB. fERRITIN 181, GGT 37, AFP 2.0 Laboratory Tests 08/24/22 Plt Count 227 Estimated GFR > 60 Total Bilirubin 0.8 AST 31 ALT 61 H Alkaline Phosphatase 78 Alpha Fetoprotein 1.8 09/22/22 Alpha Fetoprotein 1.8 US ABD 01/11/23 IMPRESSION: 1. Hepatomegaly and hepatic steatosis. Code(s): K76.0 - Fatty (change of) liver, not elsewhere classified Plan: [place] #[employer] He says he is doing better now, he has cut out all spicy foods and is eating simple foods. He says he takes a powder calcium supplement before bed, and he feels this is controlling his IBS and helping him to sleep. He continues on his omeprazole 20 mg twice a day and he has famotidine for breakthrough for his GERD, and will likely needs this unless he can lose weight. He has also used simethicone in the past but he found that this was worsening his bloating so it was discontinued. He tolerated the EGD well, and is agreeable to the 3-6 mos follow up. The only problem he had was a feeling of pressure in my head when they gave me the anesthesia, but no lasting malaise like he had after his colonoscopy. We review the liver labs, and there does not seem to be any progression of disease. However I still advocate for slow, steady weight loss to best protect his overall health and his liver. He does not drink ETOH. ROV 6 mos. (2) GERD (gastroesophageal reflux disease): Code(s): K21.9 - Gastro-esophageal reflux disease without esophagitis (3) Rectal fissure: Code(s): K60.2 - Anal fissure, unspecified (4) Bleeding hemorrhoids: Code(s): K64.9 - Unspecified hemorrhoids (5) Irritable bowel syndrome with both constipation and diarrhea: Code(s): K58.2 - Mixed irritable bowel syndrome (6) Epigastric pain: Code(s): R10.13 - Epigastric pain Medications: New famotidine 20 mg PO BEDTIME 30 tabs 6RF Refilled omeprazole 20 mg PO BID 60 caps 6RF 30 days K21.9 - Gastro-esophageal reflux disease without esophagitis Discontinued menthol-zinc oxide 0.44-20.6 % (Calmoseptine) Discontinued Reason: Patient Completed Course 1 appl topical QID PRN 113 grams 0RF wound healing Coding Level of Care Code Est Pt Level 4 (48006) Diagnoses Hepatic steatosis K76.0 GERD (gastroesophageal reflux disease) K21.9 Rectal fissure K60.2 Bleeding hemorrhoids K64.9 Irritable bowel syndrome with both constipation and diarrhea K58.2 Epigastric pain R10.13
[2023-03-28 11:31] VITALS: BP 136/78; PULSE 86; BMI 46.5
== END 2023-03-28 12:03 | disposition home or self-care (01) ==
PROVIDERS: PCP Family Medicine; Visit Provider Nurse Practitioner
DX: K76.0 Fatty (change of) liver, not elsewhere classified (principal); K21.9 Gastro-esophageal reflux disease without esophagitis; K60.2 Anal fissure, unspecified; K64.9 Unspecified hemorrhoids; K58.2 Mixed irritable bowel syndrome; R10.13 Epigastric pain
CPT/HCPCS: 99214

== ENCOUNTER → 2023-03-28 11:24 | Outpatient (BNVA) | payer OTHER, SELFPAY | PROVIDERS: PCP Family Medicine; Visit Provider Nurse Practitioner | DX: K76.0 Fatty (change of) liver, not elsewhere classified (principal); K21.9 Gastro-esophageal reflux disease without esophagitis; K60.2 Anal fissure, unspecified; K64.9 Unspecified hemorrhoids; K58.2 Mixed irritable bowel syndrome; R10.13 Epigastric pain | CPT/HCPCS: 99212 ==

== ENCOUNTER 2023-08-14 11:53 | Outpatient (REF) | payer OTHER, SELFPAY ==
[2023-08-14 14:45] LABS: Alanine Aminotransferase 38 U/L (0-40); Albumin Level 4.3 g/dL (3.5-5.0); Alkaline Phosphatase 83 U/L (39-117); Anion Gap 11 (12-20); Aspartate Amino Transferase 23 U/L (5-37); Bilirubin Total 0.5 mg/dL (0.0-1.0); Blood Urea Nitrogen 20 mg/dL (9-16); Calcium 9.7 mg/dL (8.4-10.2); Carbon Dioxide 28 mmol/L (22-29); Chloride 105 mmol/L (96-108); Cholesterol 168 mg/dL (<200); Estimated Glomerular Filt Rate > 60; Glucose Random 106 mg/dL (60-115); HDL Cholesterol 45 mg/dL (>40); LDL Cholesterol Calculated 104 mg/dL (<100); Potassium 4.1 mmol/L (3.3-5.1); Sodium 140 mmol/L (135-145); Total Protein 7.6 g/dL (6.5-8.0); Triglycerides 98 mg/dL (<150)
[2023-08-14 14:49] LABS: TSH reflex Free T4 2.33 uIU/mL (0.32-4.0)
[2023-08-14 15:41] LABS: Estimated Average Glucose 111 mg/dL; Hemoglobin A1c % 5.5 % (<6.0)
[2023-08-14 17:56] LABS: Reflex LDLD? No
== END 2023-08-14 11:54 | disposition home or self-care (01) ==
LOC: HO.HHCL 11:53
PROVIDERS: Visit Provider Family Medicine
DX: R73.03 Prediabetes (principal)
CPT/HCPCS: 36415; 80053; 80061; 83036; 84443

== ENCOUNTER 2024-07-10 12:33 | Emergency (ER) | payer OTHER, SELFPAY ==
[2024-07-10 12:44] VITALS: BP 109/71; PULSE 78; RESP 18; TEMP 36.9; O2SAT 98; BMI 48.0
--- NOTE | 2024-07-10 12:48 | ED.GENADULT ---
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 Endorses approx 5 episodes of vomiting since yesterday. ACCOUNTING INTERN in ED today he was able to tolerate soup without further episodes of vomiting. Last BM this morning. Denies blood in vomit or stools. No thinners. No recent abx. No known sick contacts No recent travel. No history of abdominal surgery. Admits to EGD in 2022 with removal of gastric polyp. Denies fever, chills, constipation, flank pain, dysuria, hematuria. Related Data Home Medications ?Medication ?Instructions ?Recorded ?Confirmed fluticasone propionate 50 1 - 2 spray intranasal DAILY PRN 03/17/21 09/08/21 mcg/actuation nasal spray,suspension Previous Rx's ?Medication ?Instructions ?Recorded hydrocortisone 2.5 % topical cream 1 appl [place] BID PRN hemorrhoids 30 11/15/21 with perineal applicator days #30 grams ondansetron 4 mg disintegrating 4 mg PO Q8H 3 days #9 tabs 08/24/22 tablet hydroxyzine HCl 25 mg tablet 25 mg PO TID PRN anxiety #90 tabs 09/22/22 famotidine 20 mg tablet 20 mg PO BEDTIME #30 tabs 03/28/23 omeprazole 20 mg capsule,delayed 20 mg PO BID 30 days #60 caps 03/28/23 release dicyclomine 10 mg capsule 10 mg PO TID PRN abdominal pain 07/10/24 #20 caps ondansetron 4 mg disintegrating 4 mg PO DAILY PRN nausea and 07/10/24 tablet vomiting 5 days #10 tabs Allergies Allergy/AdvReac Type Severity Reaction Status Date / Time amoxicillin Allergy Unknown dizziness Verified 07/10/24 12:45 penicillin V Allergy Unknown dizziness Verified 07/10/24 12:45 metronidazole AdvReac Mild Confusion Verified 07/10/24 12:45 Review of Systems Review of Systems: Constitutional: No fever, chills, fatigue, night sweats, weight changes ENT/Mouth: No ear pain, hearing loss, nasal congestion, sinus pain, rhinorrhea, sore throat Eyes: No eye pain, swelling, redness, vision changes, discharge Cardio: No chest pain, palpitations, COTA, orthopnea, peripheral edema Pulm: No SOB, cough, sputum, wheezing, dyspnea, hemoptysis GI: No hematemesis, constipation, hematochezia, melena, +N/V/D, +abd pain : No irregular bleeding, dysuria, frequency, urgency, hesitancy, hematuria, flank pain, urinary flow changes, urinary incontinence or retention MSK: No back pain, neck pain, joint pain, myalgias Skin: No lesions, rashes Neuro: No weakness, numbness, paresthesias, LOC, dizziness, headache Psych: No anxiety/panic, depression, SI/HI, AH/VH All other systems reviewed and are negative. [facility] Past Medical History Attestation statement: The following information was validated with the patient. Source: old records reviewed and nursing notes reviewed Medical History Pruritus ani Hemorrhoids with complication History of COVID-19 Loose stools GERD (gastroesophageal reflux disease) Morbid obesity Anxiety Surgical History History of colonoscopy (08/12/21) History of esophagogastroduodenoscopy (EGD) Family History Family History Father History of diabetes mellitus Mother History of diabetes mellitus Brother History of stomach cancer Social History Social History Alcohol intake: never Patient Tobacco Use Status: Never used Tobacco Advance Directives: No Advance Directives Information Provided: Yes Physical Exam ED Vital Signs: Vital Signs - 24 hr 07/10/24 12:44 07/10/24 16:02 07/10/24 17:27 Temperature 98.5 F 97.8 F 97.8 F Pulse Rate 78 88 88 Respiratory Rate 18 18 18 Blood Pressure 109/71 136/77 136/77 Pulse Oximetry 98 96 96 Oxygen Delivery Method Room Air Room Air Room Air BMI result Body Mass Index 48.0 vital signs stable, afebrile General: Well appearing, in no acute distress. Skin: Warm, dry, intact. No rashes or lesions. Head: Normocephalic, atraumatic. EENT: Hearing is intact b/l. Conjunctiva clear. PERRLA. EOM intact. Moist mucous membranes.? Neck: Supple without LAD Cardiac: Chest wall symmetric. RRR Lungs: Normal respiratory effort without accessory muscle use. CTA bilaterally Abdomen: Obese abdomen, soft, nondistended, nontender to palpation without rebound tenderness or guarding. Normoactive sounds x4. no cvat b/l. Ext: Upper and lower extremities atraumatic, without tenderness, deformity, swelling or erythema Neuro: AOx3. Normal speech. Ambulating with steady gait. Psych: Appropriate mood and affect. Responds appropriately to questions. Course Course Course Narrative: RME, this is a rapid medical exam performed by Erick Mcintyre please refer to primary provider for complete H&P- 49-year-old male past medical history significant for IBS GERD, fatty liver presents for evaluation abdominal pain, diarrhea, vomiting. Symptoms started 4 days ago. Plan for labs Reevaluation(s) Reevaluation #1: CBC without leukocytosis or left shift. No anemia. H&H stable. Chemistry without acute electrolyte abnormality requiring intervention. No EARNEST. Liver function WNL. Lipase WNL. He was tested negative for COVID, flu, RSV. His exam is quite benign and I do not feel as though imaging of his abdomen is warranted at this time. > I did review EGD performed in 2022. Findings consistent with gastritis, GERD and gastric polyp which was removed at that time. > at this time, I have suspicion for viral gastroenteritis. He was treated with a dose of dicyclomine and Zofran in the ED with improvement. tolerating crackers. Patient has remained stable throughout ED visit today. Discussed worrisome signs and symptoms and when to return to the ED. All questions answered at this time. Patient is agreeable with disposition and stable for discharge. Medications Administered Discontinued Medications Generic Name Dose Route Start Last Admin Trade Name Freq PRN Reason Stop Dose Admin Dicyclomine HCl 10 mg 07/10/24 17:04 07/10/24 17:20 Dicyclomine Hcl 10 Mg Capsule PO 07/10/24 17:05 10 mg ONCE ONE Administration Ondansetron HCl 4 mg 07/10/24 17:04 07/10/24 17:20 Ondansetron Odt 4 Mg Tab.Heaven BALLARDU 07/10/24 17:05 4 mg ONCE ONE Administration Medical Decision Making Medical Decision Making [facility] Narrative: 49-year-old Stateless-speaking male with past medical history significant for GERD, gastritis, IBS C and D presents to the ED today for evaluation of generalized abdominal cramping, N/V/D which began yesterday. vital signs stable. afebrile. he is nontoxic appearing and in NAD. on exam, obese abdomen, soft, nondistended, nontender to palpation without rebound tenderness or guarding. Normoactive sounds x4. no cvat b/l. Differential diagnosis includes gastritis, gerd, gastroenteritis. Lower suspicion for biliary colic, renal colic, nephrolithiasis. Abdominal exam without peritoneal signs. No evidence of acute abdomen at this time. Well appearing. Moderate suspicion for acute hepatobiliary disease (including acute cholecystitis). Less likely to represent acute pancreatitis, PUD (including perforation), acute infectious processes (pneumonia, hepatitis, pyelonephritis), atypical appendicitis, vascular catastrophe, bowel obstruction or viscus perforation. Presentation not consistent with other acute, emergent causes of abdominal pain at this time. Plan: labs, UA, serial reassessment Differential Diagnosis Differential Diagnoses: The differential diagnosis associated with the presentation includes as above. Admission/Observation not indicated. Lab Data [facility] Lab Attestation statement: I reviewed the patient's lab results. as above. 07/10/24 13:00 07/10/24 13:00 Labs: Lab Results 07/10/24 Range/Units 13:00 WBC 5.6 (4.8-10.8) X10*3/uL RBC 5.21 (4.60-5.80) X10*6/uL Hgb 14.7 (14.0-18.0) g/dl Hct 44.8 (42.0-52.0) % MCV 86.0 (80.0-98.0) fL MCH 28.2 (27.0-33.0) pg MCHC 32.8 (31.0-36.0) g/dl RDW 14.2 (11.0-16.0) % Plt Count 223 (160-400) X10*3/uL MPV 10.3 (9.4-12.4) fL Immature Gran % (Auto) 0.4 (0.0-0.4) % Neut % (Auto) 54.2 (45-73) % Lymph % (Auto) 26.4 (20-40) % [place] % (Auto) 16.3 H (2-11) % Eos % (Auto) 2.3 (0-4) % Baso % (Auto) 0.4 (0-2) % Lymph # (Auto) 1.5 (1.2-4.9) X10*3/uL [place] # (Auto) 0.9 (0.1-1.2) X10*3/uL Eos # (Auto) 0.1 (0.0-0.4) X10*3/uL Baso # (Auto) 0.0 (0.0-0.2) X10*3/uL Abs Immat Gran (auto) 0.02 (0.00-0.03) X10*3/uL Absolute Neuts (auto) 3.0 (2.0-8.3) x10*3/uL Absolute Nucleated RBC 0.000 (0.0-0.012) X10*3/uL Nucleated RBC % (auto) 0.0 (0.0-0.2) /100WBC PT 13.4 H (10.9-12.4) SEC INR 1.2 H (0.9-1.1) Sodium 138 (135-145) mmol/L Potassium 3.6 (3.3-5.1) mmol/L Chloride 105 (96-108) mmol/L Carbon Dioxide 26 (22-29) mmol/L Anion Gap 11 L (12-20) BUN 10 (9-16) mg/dL Creatinine 0.68 (0.5-1.4) mg/dL Estim Creat Clear Calc 175.2 Estimated GFR > 60 Random Glucose 107 (60-115) mg/dL Calcium 8.4 D (8.4-10.2) mg/dL Total Bilirubin 0.5 (0.0-1.0) mg/dL AST 30 (5-37) U/L ALT 38 (0-40) U/L Alkaline Phosphatase 69 (39-117) U/L Total Protein 7.6 (6.5-8.0) g/dL Albumin 4.2 (3.5-5.0) g/dL Lipase 9 (8-78) U/L Influenza Type A (PCR) NEGATIVE (Negative) Influenza Type B (PCR) NEGATIVE (Negative) RSV RNA Qual (PCR) NEGATIVE (Negative) SARS-CoV-2 RNA (RT-PCR) NEGATIVE (Negative) Independent Historian Clinical information obtained from an independent historian. History obtained from or confirmed by: Spouse External Record Review External record reviewed: Inpatient record, Office record, Outpatient record, Prior outpatient labs, Prior outpatient radiology, Primary care record and Outside ED record Prescription Management I considered prescription management with: Other (Dicyclomine, Zofran) Social Determinants Patient?s care significantly limited by Social Determinants of Health including: Other Social Determinant of Health Critical Care Time Critical Care Time Critical Care Time: No Discharge Plan Discharge Clinical Impression: Gastroenteritis Patient Disposition: Home, Self-Care Instructions: Gastroenteritis (ED) Additional Instructions: Your lab workup today was reassuring.? You tested negative for COVID, flu, RSV. As discussed, your symptoms are most consistent with a viral stomach bug, also known as gastroenteritis.? The treatment for this is supportive care. Symptoms usually resolve on their own in 48-72 hours.? The recommendation is rest and lots of oral hydration.? For the next 24 hours, stick to a PATRIZIA diet (bananas rice, applesauce, tea, and toast) Zofran is an anti-nausea medication. This has been sent to your pharmacy for you to take as needed for nausea.? I have also send dicyclomine to help with your abdominal cramps. Follow up with your primary care provider this week. Follow up with your GI specialist as well. call them to make an appointment. If you develop new or worsening symptoms call 911 or come back to the ER for further evaluation. Prescriptions: New dicyclomine 10 mg capsule 10 mg PO TID PRN (Reason: abdominal pain) Qty: 20 0RF ondansetron 4 mg tablet,disintegrating 4 mg PO DAILY PRN (Reason: nausea and vomiting) 5 Days Qty: 10 0RF No Action hydrocortisone 2.5 % cream with perineal applicator 1 appl [place] BID PRN (Reason: hemorrhoids) 30 Days Qty: 30 2RF ondansetron 4 mg tablet,disintegrating 4 mg PO Q8H 3 Days Qty: 9 0RF fluticasone propionate 50 mcg/actuation spray,suspension 1 - 2 spray intranasal DAILY PRN hydroxyzine HCl 25 mg tablet 25 mg PO TID PRN (Reason: anxiety) Qty: 90 3RF Rx Instructions: Pt can not swallow capsule form, tablet only please omeprazole 20 mg capsule,delayed release(DR/EC) 20 mg PO BID 30 Days Qty: 60 6RF famotidine 20 mg tablet 20 mg PO BEDTIME Qty: 30 6RF Ref[place]: [facility] [Provider Group] Rachele Treviño MD [Primary Care Provider] - Interventions: ED Discharge Assessment Last Done: 07/10/24 17:27 Discharge Date/Time: 07/10/24 17:28 Print Language: Stateless
[2024-07-10 13:10] LABS: MANUAL DIFF FLAG NO
[2024-07-10 13:13] LABS: Basophils Percent Auto 0.4 % (0-2); Eosinophils Absolute Auto 0.1 X10*3/uL (0.0-0.4); Eosinophils Percent Auto 2.3 % (0-4); Hematocrit 44.8 % (42.0-52.0); Hemoglobin 14.7 g/dl (14.0-18.0); Imm Gran Abs Auto 0.02 X10*3/uL (0.00-0.03); Imm Gran Pct Auto 0.4 % (0.0-0.4); Lymphocytes Absolute Auto 1.5 X10*3/uL (1.2-4.9); Lymphocytes Percent Auto 26.4 % (20-40); Mean Corpuscular HGB Conc 32.8 g/dl (31.0-36.0); Mean Corpuscular Hemoglobin 28.2 pg (27.0-33.0); Mean Platelet Volume 10.3 fL (9.4-12.4); Monocytes Absolute Auto 0.9 X10*3/uL (0.1-1.2); Monocytes Percent Auto 16.3 % (2-11); Neutrophils Percent Auto 54.2 % (45-73); Platelet Count 223 X10*3/uL (160-400); Red Blood Count 5.21 X10*6/uL (4.60-5.80); Red Cell Distribution Width 14.2 % (11.0-16.0); White Blood Count 5.6 X10*3/uL (4.8-10.8)
[2024-07-10 13:22] LABS: INTERNATIONAL NORM RATIO 1.2 (0.9-1.1); Prothrombin Time 13.4 SEC (10.9-12.4)
[2024-07-10 13:32] LABS: Alanine Aminotransferase 38 U/L (0-40); Albumin Level 4.2 g/dL (3.5-5.0); Alkaline Phosphatase 69 U/L (39-117); Anion Gap 11 (12-20); Aspartate Amino Transferase 30 U/L (5-37); Bilirubin Total 0.5 mg/dL (0.0-1.0); Blood Urea Nitrogen 10 mg/dL (9-16); Calcium 8.4 mg/dL (8.4-10.2); Carbon Dioxide 26 mmol/L (22-29); Chloride 105 mmol/L (96-108); Creatinine Clr Calc Pharmacy 175.2; Estimated Glomerular Filt Rate > 60; Glucose Random 107 mg/dL (60-115); Lipase 9 U/L (8-78); Potassium 3.6 mmol/L (3.3-5.1); Sodium 138 mmol/L (135-145); Total Protein 7.6 g/dL (6.5-8.0)
[2024-07-10 14:12] LABS: Influenza A PCR NEGATIVE (Negative); Influenza B PCR NEGATIVE (Negative); Resp Syncy Virus RNA Qual PCR NEGATIVE (Negative); SARS COV2 PCR INHOUSE NEGATIVE (Negative)
[2024-07-10 16:02] VITALS: BP 136/77; PULSE 88; RESP 18; TEMP 36.6; O2SAT 96
[2024-07-10] MEDS: Ondansetron ODT 4 MG TAB.RAPDIS TRANSLINGU (17:20)
[2024-07-10] MEDS: Dicyclomine HCl 10 MG CAPSULE PO (17:20)
[2024-07-10 17:27] VITALS: BP 136/77; PULSE 88; RESP 18; TEMP 36.6; O2SAT 96
--- OUTSIDE RECORDS SUMMARY | 2024-07-10 19:33 | XMS_ITS | Encounter Summary ---
Author Organization [employer] Address [address] [place] [address] [address] [place] [address] Care Team Providers Care General Hardware Salesperson Name Role Phone Rachele Treviño MD Primary Care Provider [phone] Encounter Details Date Type Department Care Team (Late st Contact Info) Description 06/07/2022 Telephone [facility] [address] [place] [address] Rachele Treviño MD [address], [place] [phone] Social History Tobacco Use Types Packs/Day Years Used Date Smoking Tobacco: Never Assessed Sex and Gender Information Value Date Recorded Sex Assigned at Male 04/10/2022 10:19 AM EDT Legal Sex Male 10:19 AM EDT Gender Identity Male 04/10/2022 10:19 AM EDT Sexual Orientation Choose not to disclose 2021 10:19 AM EDT documented as of this encounter Plan of Treatment Upcoming Encounters Date Type Department Care Team (Late Contact Info) Description 09/04/2024 9:00 AM EDT Office Visit [facility] [address] [place] [address] Rachele Treviño MD [address], [place] [phone] documented as of this encounter Visit Diagnoses Not on filedocumented in this encounter Care Teams General Hardware Salesperson Relationship Specialty Start Date End Date Rachele Treviño MD [address], [place] [phone] PCP - General Family Medicine 06/11/18 documented as of this encounter
--- OUTSIDE RECORDS SUMMARY | 2024-07-10 19:33 | XMS_ITS | Clinical Summary ---
Author Organization [facility] Address [address] [place] [address] [address] [place] [address] Care Team Providers Care Manual Plate Filler Name Role Phone Rachele Treviño MD Primary Care Provider [phone] Allergies Active Allergy Reactions Criticality Noted Date Comments Amoxicillin 01/21/2013 Other reaction(s): headache & dizziness Penicillin G 02/19/2017 Medications Linzess 145 MCG capsule Take 145 mcg by mouth in the morning. 2 Active hydrocortisone (Anusol-HC) 2.5 % rectal cream APPLY RECTALLY TWICE DAILY NEEDED FOR HEMORRHOIDS 2 Active SM Gas Relief 180 MG capsule TAKE 1 CAPSULE BY MOUTH THREE TIMES DAILY BEFORE MEALS 2 Active hydrOXYzine pamoate (Vistaril) 25 MG capsule Take 1 tablet by mouth three times daily as needed for anxiety 90 capsule 3 3 Active omeprazole (PriLOSEC) [address] capsule Take 1 capsule (20 mg) by mouth in the morning. 180 capsule 3 3 Active loratadine (Claritin) 10 MG tablet Take 1 tablet (10 mg) by mouth in the morning. 30 tablet 11 4 08/14/19 25 Active albuterol 108 (90 Base) MCG/ACT inhaler Inhale 2 puffs every 4 (four) hours if needed for wheezing or shortness of breath. Maximum 8 puffs per day 18 g 3 4 08/14/19 25 Active Active Problems Problem Noted Date Diagnosed Date Prehypertension 03/02/2024 Assessment & Plan (03/02/2024 1:04 PM EDT): -Goal BP < 140/90 per JNC-8 and < 130/80 per ACC/AHA guideline (Treatment threshold >=140/90) -Continue working on lifestyle modifications -Recommended self-monitoring BP. -Follow up in 3-6 mo, sooner if any problem arises Metabolic dysfunction-associ ated steatotic liver disease (MASLD) 12/13/2022 Assessment & Plan (03/02/2024 1:11 PM EDT): - Last liver test: 08/14/23 - Last US: January 2023, hepatomegaly and hepatic steatosis. No elastography, - FIB4 index 0.77 - [place] [facility] [place] 2023 for GERD - continue working on lifestyle modifications - continue surveillance study, US / elastography likely in January 2025 Assessment & Plan (09/02/2023 5:07 PM EDT): - lifestyle modifications Obstructive sleep apnea syndrome 04/11/2017 Assessment & Plan (02/26/2024 12:47 PM EDT): -Pt has not received replacement for CPAP machine, will check status of replacement parts -Pt may need a new Sleep Study and CPAP machine. -Will refer him to Sleep Medicine Clinic - Continue working on lifestyle modifications to achieve healthier weight Assessment & Plan (09/02/2023 5:05 PM EDT): -Pt has not received replacement for CPAP machine, will check status of replacement parts -Pt may need a new Sleep Study and CPAP machine. -Will refer him to Sleep Medicine Clinic - Continue working on lifestyle modifications to achieve healthier weight Assessment & Plan (12/13/2022 11:51 AM EDT): -Pt has not received replacement for CPAP machine, will check status of replacement parts Pt may need a new Sleep Study and CPAP machine. -Will refer him to Sleep Medicine Clinic - Continue working on lifestyle modifications to achieve healthier weight Assessment & Plan (08/30/2022 1:02 PM EDT): -Pt has not received replacement for CPAP machine, will check status of replacement parts Pt may need a new Sleep Study and CPAP machine. -Will refer him to Sleep Medicine Clinic - Continue working on lifestyle modifications to achieve healthier weight Assessment & Plan (06/28/2022 8:50 AM EST): - Sleep study in 2017 showed FORREST and recommended treatment with CPAP. CPAP was prescribed, but his insurance did not cover for the cost - Continue working on lifestyle modifications to achieve healthier weight Incomplete right bundle branch block 04/11/2017 Migraine 10/14/2015 Headache disorder 04/13/2015 Assessment & Plan (02/26/2024 12:47 PM EDT): - continue CPAP - continue stress reduction, improve sleep hygiene, and work on lifestyle modification Assessment & Plan (09/02/2023 5:06 PM EDT): - continue CPAP - continue stress reduction, improve sleep hygiene, and work on lifestyle modification Assessment & Plan (06/27/2022 6:56 PM EST): - not active currently - continue stress reduction, improve sleep hygiene, and work on lifestyle modification Gastroesophageal reflux disease without esophagi tis 10/13/2014 Assessment & Plan (02/26/2024 12:47 PM EDT): -s/p EGD by Dr. Tee on 03/14/23 -Continue Omeprazole 20 mg BID -Continue Famotidine 20mg at bedtime -Continue following w/ GI Specialist, last seen after EGD on 03/28/23 -Continue eating healthier diet -Continue using pillows to elevate head in bed while sleeping Assessment & Plan (09/02/2023 5:07 PM EDT): -s/p EGD by Dr. Tee on 03/14/23 -Continue Omeprazole 20 mg BID -Continue Famotidine 20mg at bedtime -Continue following w/ GI Specialist, last seen after EGD on 03/28/23 -Continue eating healthier diet -Continue using pillows to elevate head in bed while sleeping Assessment & Plan (12/13/2022 11:50 AM EDT): -Continue Omeprazole 20 mg BID -Continue Famotidine 20mg at bedtime -Continue following w/ GI Specialist, last seen on 09/2022 -Continue eating healthier diet -Continue using pillows to elevate head in bed while sleeping Assessment & Plan (08/30/2022 12:49 PM EDT): -Continue Omeprazole 20 mg BID -Initiate Famotidine 20mg at bedtime -Pt has f/u appt with GI -Continue eating healthier diet -Continue using pillows to elevate head in bed while sleeping Assessment & Plan (06/28/2022 8:54 AM EST): - s/p EGD on 03/06/19 hyperplastic gastric polyp, mild chronic inactive gastritis; negative H. Pylori - [place] [facility] [place] - continue omeprazole prn - avoid NSAIDs Prediabetes 10/13/2014 Assessment & Plan (09/02/2023 5:07 PM EDT): - A1C 6.4% on 08/15/22 - Continue working on lifestyle modifications -will check BG and A1c one-week before next visit -follow-up in 6 - 12 months Assessment & Plan (12/13/2022 11:50 AM EDT): - A1C 6.4% on 08/15/22 - Continue working on lifestyle modifications -will check BG and A1c one-week before next visit -follow-up in 6 - 12 months Assessment & Plan (08/30/2022 1:00 PM EDT): A1c 6.4% 5.8% on 07/22/20 - Continue working on lifestyle modifications -will check FBG and A1c one-week before next visit that is in 6 months -follow-up in 6 months Assessment & Plan (06/28/2022 8:56 AM EST): - 07/22/20 Hgb A1C 5.8% - Continue working on lifestyle modifications Allergic rhinitis 05/26/2014 Assessment & Plan (09/02/2023 5:08 PM EDT): - previously prescribed antihistamine and fluticasone nasal - he does not take it regularly Assessment & Plan (06/28/2022 8:57 AM EST): - previously prescribed antihistamine and fluticasone nasal - he does not take it regularly Mixed anxiety and depressive disorder 10/13/2013 Assessment & Plan (09/02/2023 5:08 PM EDT): - previously tried hydroxyzine and counseling - he is able to manage his symptoms at this time Assessment & Plan (08/30/2022 1:00 PM EDT): - previously tried hydroxyzine and counseling - he is able to manage his symptoms at this time Assessment & Plan (06/28/2022 8:57 AM EST): - previously tried hydroxyzine and counseling - he is able to manage his symptoms at this time Obesity 12/08/2011 Assessment & Plan (12/13/2022 11:50 AM EDT): - continue working on lifestyle modifications -continue healthy eating habits and healthy diet Assessment & Plan (08/30/2022 1:02 PM EDT): - continue working on lifestyle modifications -continue healthy eating habits and healthy diet Assessment & Plan (06/28/2022 8:56 AM EST): - continue working on lifestyle modifications Resolved Problems Problem Noted Date Diagnosed Date Resolved Date Chill 12/07/2022 08/14/2023 Encounters Date Type Department Care Team Description 07/10/2024 Telephone [facility] [address] [place] [address] Rachele Treviño MD Nurse Triage from Last 3 Months Immunizations Name Administration Dates Next Due Hep A, Adult 02/25/2024,08/14/2023 Hep B, adult 02/25/2024,08/14/2023,12/13/2022 Influenza injectable quadriv alent IIV4 with preservative 06/27/2022,04/11/2017,05/04/2015 Influenza injectable quadriv alent preservative free 03/19/2019,05/15/2018,05/18/2016 Influenza, IIV3, injectable 05/24/2011, 0,05/05/2008 Influenza, Split (incl. rich[place] fied surface antigen) 02/08/2012 MMR 11/01/2015 TD (adult), 2 Lf tetanus tox oid, preservative free, adsorbed 06/27/2022,06/29/2009 Tdap 02/08/2012 Family History Medical History Relation Name Comments Stomach cancer Father's Brother Diabetes type II Sister Relation Name Status Comments Father's Brother Sister Social History Tobacco Use Types Packs/Day Years Used Date Smoking Tobacco: Never Passive Smoke Exposure: Never Smokeless Tobacco: Never Tobacco Cessation:Counseling Given: Not Answered Alcohol Answer Date Recorded Frequency of Alcohol Consumption Not on file 02/25/2024 Average Number of Drinks Not on file 024 Frequency of Binge Drinking Not on file 02/09 Score 0 02/25/2024 Depression Answer Date Recorded Patient Health Questionnaire-9 Score 0 08/14/2023 Patient Health Questionnaire-9 Score 0 08/14/2023 Last PHQ-9: Questionnaire Data Not on file 0 08/14/2023 Housing Stability Answer Date Recorded What is your housing situation today? I have fidel lam 08/06/[address] you li ve. Do you have problems with any of the following? None of the above 08/06/2023 Food Insecurity Answer Date Recorded Within the past 12 months, y ou worried that your food would run out before you got money to buy more: Never True 08/06/2023 Within the past 12 months,th e food you bought just didn't last and you didn't have enough money to get more: Never True Transportation Answer Date Recorded In the past 12 months, has l ack of transportation kept you from medical appts, meetings, work or from getting things needed for daily living? No 08/06/2023 Utilities Answer Date Recorded In the past 12 months, has t he electric, gas, oil or water company threatened to shut off services in your home? No 08/06/2023 Depression Answer Date Recorded Patient Health Questionnaire-2 Score 0 08/14/2023 Sex and Gender Information Value Date Recorded Sex Assigned at Male 04/10/2022 10:19 AM EDT Legal Sex Male 10:19 AM EDT Gender Identity Male 04/10/2022 10:19 AM EDT Sexual Orientation Choose not to disclose 2021 10:19 AM EDT Last Filed Vital Signs Vital Sign Reading Time Taken Comments Blood Pressure 136/86 02/25/2024 1:54 PM EDT Pulse 85 02/25/2024 1:54 PM EDT Temperature 36.1 ??C (96.9 ??F) 02/25/2024 1:54 PM ED T Respiratory Rate 16 02/25/2024 1:54 PM EDT Oxygen Saturation 99% 08/14/2023 11:13 AM EST Inhaled Oxygen Concentration - - Weight 133 kg (294 lb) 02/25/2024 1:54 PM EDT Height 168.1 cm (5' 6.19 ) 02/25/2024 1:54 PM ED T Body Mass Index 47.18 02/25/2024 1:54 PM EDT Plan of Treatment Upcoming Encounters Date Type Department Care Team (Late st Contact Info) Description 09/04/2024 9:00 AM EDT Office Visit [facility] MED[facility] [address] [place] [address] Rachele Treviño MD [address] [place] [address] Health Maintenance Due Date Last Done Comments CT Colonography 1977 FIT DNA/Cologuard 1977 FIT 1977 FOBT 1977 Sigmoidoscopy 1977 Family Planning (PISQ) 02/25/1992 COVID-19 Vaccine ( season) 2024 11/06/2020, 10/16/2020 Influenza Vaccine (#1) 2024 , 03/19/2019, 05/15/2018, Additional history exists SDOH Screening 08/06/2024 08/06/2023 Depression Screening 08/13/2024 08/14/2023, 08/14/19 24 Diabetes: Hemoglobin A1C 08/13/2024 024, 08/15/2022, 07/22/2020 Alcohol/Substance Use Screening 2025 02/25/2024 Tobacco Screening 03/02/2025 03/02/2024 Zoster Vaccines (1 of 2) 2027 Lipid Panel 08/13/2028 08/14/2023, 03/0 12/2022, 07/22/2020 Colonoscopy 08/13/2031 08/12/2021 Colorectal Cancer Screening 08/13/2031 DTaP/Tdap/Td Vaccines (3 - Td or Tdap) 06/27/2032 06/27/2022, 02/08/2012, 06/29/2009 RSV Patients and Patients Aged 60 years or older (1 - 1-dose 75+ series) 02/25/2052 HIV Screening Completed 07/22/2020 Hepatitis C Screening Completed 07/22/2020 Hepatitis A Vaccines Completed 02/25/2024, 08/14/19 Hepatitis B Vaccines Completed 02/25/2024, 08/14/2023, 12/13/2022 HIB Vaccines Aged Out No longer eligi ble based on patient's age to complete this topic HPV Vaccines Aged Out No longer eligi ble based on patient's age to complete this topic IPV Vaccines Aged Out No longer eligi ble based on patient's age to complete this topic Meningococcal Vaccine Aged Out No irene cha eligible based on patient's age to complete this topic Pneumococcal Vaccine: Pediatrics (0 to 5 Years) and At-Risk Patients (6 to 49) Years) Aged Out No longer eligible based on patient's age to complete this topic RSV under 20 months Aged Out No longe r eligible based on patient's age to complete this topic Rotavirus Vaccines Aged Out No longer eligible based on patient's age to complete this topic Procedures Procedure Name Priority Date/Time Associated Diagnosis Comments LIPASE Routine 07/10/2024 1:00 PM EST Obstructive sleep apnea syndrome COMPREHENSIVE METABOLIC PANEL Routine 07/10/2024 1:00 PM EST Obstructive sleep apnea syndrome PROTHROMBIN TIME-INR Routine 07/10/2024 1:00 PM EST Obstructive sleep apnea syndrome CBC WITH AUTO DIFFERENTIAL Routine 07/10/2024 1:00 PM EST Obstructive sleep apnea syndrome SARS COV2/INFLUENZA A/B AND RSV RNA QL NAAT Routine 07/10/2024 1:00 PM EST Obstructive sleep apnea syndrome HEMOGLOBIN A1C Routine 08/14/2023 11:54 AM EST Prediabetes LIPID PANEL WITH REFLEX TO DIRECT LDL Routine 08/14/2023 11:54 AM EST Prediabetes HM COLONOSCOPY Routine 08/12/2021 ZZZ HISTORICAL HEPATITIS C AB W/REFL TO HCV RNA, QN, PCR Routine 07/22/2020 10:24 AM EST HIV 1/2 ANTIGEN/ANTIBODY, FOURTH GENERATION W/RFL Routine 07/22/2020 10:24 AM EST from Last 3 Months or Most Recently Relevant to Health Maintenance Results * SARS-CoV-2 RNA, Influenza A/B, and RSV RNA, Ql NAAT (07/10/2024 1:00 PM EST) Influenza A PCR NEGATIVE Negative [facility] Influenza B PCR NEGATIVE Negative [facility] Resp Syncy Virus RNA Qual PCR NEGATIVE Negative [facility] SARS COV2 PCR NEGATIVE Negative [facility] Comment:All test results mus t be correlated with clinical findings.Negative results do not preclude SARS-CoV2, influenza Avirus, influenza B virus and/or RSV infectionand should not be used as the sole basis for treatment orother patient management decisions. Negative results must becombined with clinical observations, patient history, andepidemiological information.This test has not been evaluated for monitoring treatment ofinfection.This test has been authorized by the FDA under an EmergencyUse Authorization (EUA) for use by authorized laboratories.Testing performed on the Spot Influence GeneXpert utilizingreal-time RT-PCR.All SARS CoV2 and positive influenza A/B results arereported to [facility]. 07/10/2024 1:00 PM EST 07/10/2024 1:08 PM EST us Generic External Data Provider LAB MICROBIOLOGY - GENERAL ORDERABLES Final Result [facility] [address] [place] [phone] * (ABNORMAL) CBC auto differential (07/10/2024 1:00 PM EST) White Blood Count 5.6 4.8 - 10.8 X10*3/uL [facility] Red Blood Count 5.21 4.60 - 5.80 X10*6/uL [facility] Hemoglobin 14.7 14.0 - 18.0 g/dl [facility] Hematocrit 44.8 42.0 - 52.0 % [facility] Mean Corpuscular Volume 86.0 80.0 - 98.0 fL [facility] Mean Corpuscular Hemoglobin 28.2 27.0 - 33.0 pg [facility] Mean Corpuscular HGB Conc 32.8 31.0 - 36.0 g/dl [facility] Red Cell Distribution Width 14.2 11.0 - 16.0 % [facility] Platelet Count 223 160 - 400 X10*3/uL [facility] Mean Platelet Volume 10.3 9.4 - 12.4 fL [facility] Neutrophils Percent Auto 54.2 45 - 73 % [facility] Imm Gran Pct Auto 0.4 0.0 - 0.4 % [facility] Lymphocytes Percent Auto 26.4 20 - 40 % [facility] Monocytes Percent Auto 16.3(H) 2 - 11 % [facility] Eosinophils Percent Auto 2.3 0 - 4 % [facility] Basophils Percent Auto 0.4 0 - 2 % [facility] NRBC Pct Auto 0.0 0.0 - 0.2 /100WBC [facility] Neutrophils Absolute Auto 3.0 2.0 - 8.3 x10*3/uL [facility] Imm Gran Abs Auto 0.02 0.00 - 0.03 X10*3/uL [facility] Lymphocytes Absolute Auto 1.5 1.2 - 4.9 X10*3/uL [facility] Monocytes Absolute Auto 0.9 0.1 - 1.2 X10*3/uL [facility] Eosinophils Absolute Auto 0.1 0.0 - 0.4 X10*3/uL [facility] Basophils Absolute Auto 0.0 0.0 - 0.2 X10*3/uL [facility] NRBC Abs Auto 0.000 0.0 - 0.012 X10*3/uL [facility] 07/10/2024 1:00 PM EST 07/10/2024 1:08 PM EST Generic External Data Provider LAB BLOOD ORDERAB LES Final Result Performing Organization Address [facility] Co de Phone Number [facility] [address] [place] [phone] * (ABNORMAL) Prothrombin Time-INR (07/10/2024 1:00 PM EST) Prothrombin Time 13.4(H) 10.9 - 12.4 SEC [facility] INTERNATIONAL NORM RATIO 1.2(H) 0.9 - 1.1 [facility] Comment:INTERNATIONAL NORMAL IZED RATIO (INR) REFERENCE RANGES Reference RangeFor patients not on anticoagulant therapy: 0.9 - 1.1INR ranges for oral anticoagulanttherapy:For prevention and treatment of venous thrombosis and pulmonary embolism: 2.0 - 3.0For acute myocardial infarction with aspirin therapy: 2.0 - 3.0For acute myocardial infarction without aspirin therapy: 3.0 - 4.0For patients with mechanical prosthetic heart valves: 2.5 - 3.5 07/10/2024 1:00 PM EST 07/10/2024 1:08 PM EST [employer] External Data Provider LAB BLOOD ORDERAB LES Final Result Performing Organization Address [facility] Co de Phone Number [facility] [address] [place] [phone] * Lipase (07/10/2024 1:00 PM EST) Lipase 9 8 - 78 U/L [facility] 07/10/2024 1:00 PM EST 07/10/2024 1:08 PM EST us Generic External Data Provider LAB BLOOD ORDERAB LES Final Result [facility] [address] [place] [phone] * (ABNORMAL) Comprehensive Metabolic Panel (07/10/2024 1:00 PM EST) Sodium 138 135 - 145 mmol/L [facility] Potassium 3.6 3.3 - 5.1 mmol/L [facility] Chloride 105 96 - 108 mmol/L [facility] Carbon Dioxide 26 22 - 29 mmol/L [facility] Anion Gap 11(L) 12 - 20 [facility] Urea Nitrogen (BUN) 10 9 - 16 mg/dL [facility] Creatinine, Serum 0.68 0.5 - 1.4 mg/dL [facility] Creatinine Clr Calc Pharmacy 175.2 [facility] Comment:eGFR (calculated fro m the MDRD study equation) and eCrCl(calculated from the Cockcroft-Gault equation) are based ondifferent parameters and may not yield comparable results.If eCrCl result is absurd, please check patient'sheight/weight. Estimated Glomerular Filt Rate >60 [facility] Comment:Chronic Kidney Disea se: Estimated GFR < 60 mL/min/1.82m5Oxucsa Kidney Disease: Estimated GFR < 15 mL/min/1.73m2 Glucose 107 60 - 115 mg/dL [facility] Calcium 8.4 8.4 - 10.2 mg/dL [facility] Bilirubin, Total 0.5 0.0 - 1.0 mg/dL [facility] Aspartate Amino Transferase 30 5 - 37 U/L [facility] Alanine Aminotransferase 38 0 - 40 U/L [facility] Total Protein 7.6 6.5 - 8.0 g/dL [facility] Albumin Level 4.2 3.5 - 5.0 g/dL [facility] Alkaline Phosphatase 69 39 - 117 U/L [facility] 07/10/2024 1:00 PM EST 07/10/2024 1:08 PM EST us Generic External Data Provider LAB BLOOD ORDERAB LES Final Result Performing Organization Address [facility] Co de Phone Number [facility] [address] [place] [phone] * (ABNORMAL) Lipid Panel with Reflex to Direct LDL (08/14/2023 11:54 AM EST) Triglycerides 98 <150 mg/dL [facility] Comment:Desirable Triglyceri de: less than 150 mg/dLBorderline High Triglyceride 150-199 mg/dLHigh Triglyceride: 200-499 mg/dLVery High Triglyceride: greater than or equal to 5OO mg/dL Cholesterol 168 <200 mg/dL [facility] Comment:Desirable Cholestero l: less than 200 mg/dLBorderline High Cholesterol: 200-239 mg/dLHigh Cholesterol: greater than 239 mg/dL LDL Cholesterol Calculated 104(H) <100 mg/dL [facility] Comment:Desirable LDL: less than 100 mg/dLNear Optimal/Above Optimal LDL: 110- 129 mg/dLBorderline High LDL: 130-159 mg/dLHigh LDL: 160-189 mg/dLVery High LDL: greater than or equal to 190 mg/dL HDL Cholesterol 45 >40 mg/dL [facility] Comment:Desirable HDL: great er than 40 mg/dL Note: This HDL assay may give artificially low results in patients with liver disease. Blood 08/14/2023 11:5 4 AM EST 08/14/2023 2:07 PM EST us Rachele Treviño MD LAB BLOOD ORDERABLES Final Resul t Performing Organization Address City/[facility]/ZIP Co de Phone Number [facility] [address] [place] [phone] * Hemoglobin A1c (08/14/2023 11:54 AM EST) Hemoglobin A1c 5.5 <6.0 % [facility] Comment:Hemoglobin A1C Refer ence Range Adults: 4.8 - 6.0 % Non diabetic: < 6.0 % Goal: < 7.0 %Additional Action Suggested: > 8.0 %Note: Hemoglobin A1c results are invalid for patients with abnormal amounts of HbF. Blood transfusions may impact the HbA1c concentration in the patient sample. Estimated Average Glucose 111 mg/dL [facility] Comment:eAG = Estimated ave rage glucose which is %A1C expressed asaverage glucose, using the formula of the H5C-YothzmuMupyxul Glucose study (ADAG), Diabetes Care, Vol.31,#8,Jan. 2007 Blood Venous blood specimen / Unknown 08/14/2023 11:54 AM EST 08/14/2023 2:07 PM EST Rachele Treviño MD LAB BLOOD ORDERABLES Final Resul t [facility] [address] [place] [phone] * Hm Colonoscopy (08/12/2021) Pathologist [facility] Colonoscopy Normal Normal Marcelo Provider HEALTH MAINTENANCE Final Result * HEPATITIS C AB W/REFL TO HCV RNA, QN, PCR (07/22/2020 10:24 AM EST) HEPATITIS C ANTIBODY NON-REACT LI[facility]IE NON-REACT [facility] INDEX 0.01 <1.00 [facility] Comment: ?? HCV antibody was non-reactive. There is no laboratory ?? evidence of HCV infection. ?? In most cases, no further action is required. However, if recent HCV exposure is suspected, a test for HCV RNA (test code 41061) is suggested. ?? For additional information please refer to http://education.[employer]/faq/XMZ19f6 (This link is being provided for informational/ educational purposes only.) ?? 07/22/2020 10:2 4 AM EST Rachele Treviño MD HISTORICAL/NON ORDERABLE LABS Fi nal Result Performing Organization Address [facility] [facility] de Phone Number [facility] [address] * HIV 1/2 ANTIGEN/ANTIBODY,FOURTH GENERATION W/RFL (07/22/2020 10:24 AM EST) HIV-1/2 ANTIGEN AND ANTIBODIES, 4TH GENERATION W/ REFLEX NON-REACT LIZZIE NON-REACT LIZZIE [facility] Comment: HIV-1 antigen and HIV-1/HIV-2 antibodies were not detected. There is no laboratory evidence of HIV infection. ?? PLEASE NOTE: This information has been disclosed to you from records whose confidentiality may be protected by state law. ??If your state requires such protection, then the state law prohibits you from making any further disclosure of the information without the specific written consent of the person to whom it pertains, or as otherwise permitted by law. A general authorization for the release of medical or other information is NOT sufficient for this purpose. ? For additional information please refer to http://education.[employer]/faq/FGK798 (This link is being provided for informational/ educational purposes only.) ? The performance of this assay has not been clinically validated in patients less than 2 years old. ?? 07/22/2020 10:2 4 AM EST Rachele Treviño MD LAB BLOOD ORDERABLES Final Resul t Performing Organization Address [facility] de Phone Number [facility] [address] from Last 3 Months or Most Recently Relevant to Health Maintenance Insurance [facility] Care Teams Manual Plate Filler Relationship Specialty Start Date End Date Rachele Treviño MD [address] [place] [address] PCP - General Family Medicine 06/11/18
--- OUTSIDE RECORDS SUMMARY | 2024-07-10 19:33 | XMS_ITS | Encounter Summary ---
Author Organization [employer] Address [address] [facility] 7t [place] [address] Care Team Providers Care Washerette Machine Operator Name Role Phone Rachele Treviño MD Primary Care Provider [phone] Reason for Visit * Reason Onset Date Comments Nurse Triage 07/10/2024 Encounter Details Date Type Department Care Team ([facility] st Contact Info) Description 07/10/2024 Telephone [facility] [address] [place], [place] [phone] Rachele Treviño MD [address] [place], [place] [phone] Nurse Triage Social History Tobacco Use Types Packs/Day Years Used Date Smoking Tobacco: Never Passive Smoke Exposure: Never Smokeless Tobacco: Never Alcohol Answer Date Recorded Frequency of Alcohol [...] AM EDT documented as of this encounter Miscellaneous Notes * Telephone Encounter - Saumya Mcneil RN - 07/10/2024 12:15 PM EST Sent to team for [facility] ER status check PRN. * Telephone Encounter - Saumya Mcneil RN - 07/10/2024 12:07 PM EST Call returned to Deonte Herman to triage below. Reports having epigastric pain x 2 days. Pt reports having intermittent cramping. Pt had vomiting last night. Per pt had coffee ground emesis. Per pt did use pepto bismol, so having dark loose watery stools. No visible blood in stool. Pt advised of disposition, agrees to week [facility] ED now for evaluation. Advised to return call after discharge for follow up. Protocol Used: Abdominal Pain - Upper (Adult) Protocol-Based Disposition: Go to ED Now Positive Triage Question: * Vomiting red blood or black (coffee ground) material (Exception: Few streaks and only occurred once.) * All higher-acuity triage questions were negative Care Advice Discussed: * Reassurance and Education - Stomach Pain * Reasons To Call Back - You become worse * Telephone Encounter - Neal Fraser - 07/10/2024 11:51 AM EST Symptom: Abdominal Pain - Male Outcome: Talk to a nurse or provider within 15 minutes Reason: Severe pain now Please contact pt at [phone]. documented in this encounter Plan of Treatment Upcoming Encounters Date Type Department Care Team (Late st Contact Info) Description 09/04/2024 9:00 AM EDT Office Visit [facility] [address] [place] [address] Rachele Treviño MD [address] [place] [address] documented as of this encounter Visit Diagnoses Not on filedocumented in this encounter Additional Health Concerns Assessment Noted Time PHQ-9 Depression Total Score: 0 08/14/19 24 11:13 AM EST documented as of this encounter Care Teams Washerette Machine Operator Relationship Specialty Start Date End Date Rachele Treviño MD [address] [place] [phone] PCP - General Family Medicine 06/11/18 documented as of this encounter
--- OUTSIDE RECORDS SUMMARY | 2024-07-10 19:33 | XMS_ITS | Encounter Summary ---
Author Organization [employer] Address [address] [place] [address] 7t [place] [address] Care Team Providers Care Registry Nurse Name Role Phone Rachele Treviño MD Primary Care Provider [phone] Encounter Details Date Type Department Care Team (Late st Contact Info) Description 05/23/2022 Telephone [facility] [address] [place] [address] Rachele Treviño MD [address] [place], [place] [phone] Social History Tobacco Use Types Packs/Day Years [...] Description 09/04/2024 9:00 AM EDT Office Visit [facility] [address] [place] [address] Rachele Treviño MD [address] [place], [place] [phone] documented as of this encounter Visit Diagnoses Not on filedocumented in this encounter Care Teams Registry Nurse Relationship Specialty Start Date End Date Rachele Treviño MD [address] [place] [address] [phone] PCP - General Family Medicine 06/11/18 documented as of this encounter
--- OUTSIDE RECORDS SUMMARY | 2024-07-10 19:33 | XMS_ITS | Encounter Summary ---
Author Organization [employer] Address [address] [place] [address] 7 [place] [address] Care Team Providers Care Vineyard Supervisor Name Role Phone Rachele Treviño MD Primary Care Provider [phone] Reason for Visit * Reason Onset Date Comments Med Refill 03/13/2023 Encounter Details Date Type Department Care Team (Late st Contact Info) Description 03/13/2023 Refill [facility] [address] [place] [address] [phone] Rachele Treviño MD [address] [place] [address] [phone] Social History Tobacco Use Types Packs/Day Years Used Date Smoking Tobacco: Never Passive Smoke Exposure: Never Smokeless Tobacco: Never Depression Answer Date Recorded Patient Health Questionnaire-9 Score 0 06/27/2022 Depression Answer Date Recorded Patient Health Questionnaire-2 Score 0 06/27/2022 Sex and Gender Information Value Date Recorded [...] Description 09/04/2024 9:00 AM EDT Office Visit [facility] [address] [place], [place] [phone] Rachele Treviño MD [address] [place] [address] [phone] documented as of this encounter Visit Diagnoses Not on filedocumented in this encounter Additional Health Concerns Assessment Noted Time PHQ-9 Depression Total Score: 0 06/27/19 23 1:48 PM EST documented as of this encounter Care Teams Vineyard Supervisor Relationship Specialty Start Date End Date Rachele Treviño MD [address] [place] [address] PCP - General Family Medicine 06/11/18 documented as of this encounter
--- OUTSIDE RECORDS SUMMARY | 2024-07-10 19:33 | XMS_ITS | Encounter Summary ---
Author Organization [employer] Address [address] [place] [address] 7 [place] [address] Care Team Providers Care Transcription Coordinator Name Role Phone Rachele Treviño MD Primary Care Provider [phone] Reason for Referral * Consultation (Routine) - Closed Specialty Diagnoses / Procedures Referred By Todd alberto Referred To Contact Sleep Medicine Diagnoses Obstructive sleep apnea syndrome Rachele Treviño MD [address] [place] [address] Phone: tel: fax: Sleep Medicine Service [address], [address] [place] [address] Phone: tel: fax: Referral ID Status Reason Start Date Expiration Date V isits Requested Visits Authorized [id number] Closed Specialty Services Required 10/08/2023 10/07/2024 1 1 Encounter Details Date Type Department Care Team (Late st Contact Info) Description 10/08/2023 Orders Only [facility] [address] [place] [phone] Rachele Treviño MD [address] [place], [place] [phone] Obstructive sleep apnea syndrome (Primary Dx) Social History Tobacco Use Types Packs/Day Years [...] Upcoming Encounters Date Type Department Care Team ([facility] st Contact Info) Description 09/04/2024 9:00 AM EDT Office Visit [facility] [address] [place] [phone] Rachele Treviño MD [address] [place] [address] Scheduled Referrals Name Type Priority Associated Diagnoses Orde r Schedule Referral to Sleep Medicine Outpatient Referral Routine Obstructive sleep apnea syndrome Expected: 10/08/2023 (Approximate), Expires: 10/07/2024 documented as of this encounter Procedures Procedure Name Priority Date/Time Associated Diagnosis Comments SARS COV2/INFLUENZA A/B AND RSV RNA QL NAAT Routine 07/10/2024 1:00 PM EST Obstructive sleep apnea syndrome CBC WITH AUTO DIFFERENTIAL Routine 07/10/2024 1:00 PM EST Obstructive sleep apnea syndrome PROTHROMBIN TIME-INR Routine 07/10/2024 1:00 PM EST Obstructive sleep apnea syndrome LIPASE Routine 07/10/2024 1:00 PM EST Obstructive sleep apnea syndrome COMPREHENSIVE METABOLIC PANEL Routine 07/10/2024 1:00 PM EST Obstructive sleep apnea syndrome documented in this encounter Results * SARS-CoV-2 RNA, Influenza A/B, and RSV RNA, Ql NAAT (07/10/2024 1:00 PM EST) Influenza A PCR NEGATIVE Negative [facility] Influenza B PCR NEGATIVE Negative [facility] Resp Syncy Virus RNA Qual PCR NEGATIVE Negative [facility] SARS COV2 PCR NEGATIVE Negative [facility] Comment:All test results mus t be [...] use by authorized laboratories.Testing performed on the [employer] GeneXpert utilizingreal-time RT-PCR.All SARS CoV2 and positive influenza A/B results arereported to [facility]. 07/10/2024 1:00 PM EST 07/10/2024 1:08 PM EST us Generic External Data Provider LAB MICROBIOLOGY - GENERAL ORDERABLES Final Result [facility] [address] [place] [address] [phone] * Lipase (07/10/2024 1:00 PM EST) Lipase 9 8 - 78 U/L [facility] 07/10/2024 1:00 PM EST 07/10/2024 1:08 PM EST us Generic External Data Provider LAB BLOOD ORDERAB LES Final Result [facility] [address] [place], [place] [phone] * (ABNORMAL) Comprehensive Metabolic Panel (07/10/2024 1:00 PM EST) Sodium 138 135 - 145 mmol/L [facility] Potassium 3.6 3.3 - 5.1 mmol/L [facility] Chloride 105 96 - 108 mmol/L [facility] Carbon Dioxide 26 22 - 29 mmol/L [facility] Anion Gap 11(L) 12 - 20 [facility] Urea Nitrogen (BUN) 10 9 - 16 mg/dL [facility] Creatinine, Serum 0.68 0.5 - 1.4 mg/dL [facility] Creatinine Clr Calc Pharmacy 175.2 [facility] Comment:eGFR (calculated fro m the MDRD study equation) and eCrCl(calculated from the Cockcroft-Gault equation) are based ondifferent parameters and may not yield comparable results.If eCrCl result is absurd, please check patient'sheight/weight. Estimated Glomerular Filt Rate >60 [facility] Comment:Chronic Kidney Disea se: Estimated GFR < 60 mL/min/[id number] Kidney Disease: Estimated GFR < 15 mL/min/1.73m2 Glucose 107 60 - 115 mg/dL [facility] Calcium 8.4 8.4 - 10.2 mg/dL [facility] Bilirubin, Total 0.5 0.0 - 1.0 mg/dL [facility] Aspartate Amino Transferase 30 5 - 37 U/L [facility] Alanine Aminotransferase 38 0 - 40 U/L [facility] Total Protein 7.6 6.5 - 8.0 g/dL [facility] Albumin Level 4.2 3.5 - 5.0 g/dL [facility] Alkaline Phosphatase 69 39 - 117 U/L [facility] 07/10/2024 1:00 PM EST 07/10/2024 1:08 PM EST Generic External Data Provider LAB BLOOD ORDERAB LES Final Result Performing Organization Address [place]/[facility] Co de Phone Number [facility] [address] [place] [phone] * (ABNORMAL) Prothrombin Time-INR (07/10/2024 1:00 PM EST) Prothrombin Time 13.4(H) 10.9 - 12.4 SEC [facility] INTERNATIONAL NORM RATIO 1.2(H) 0.9 - 1.1 [facility] Comment:INTERNATIONAL NORMAL IZED RATIO (INR) [...] ORDERAB LES Final Result Performing Organization Address [place]/[facility] Co de Phone Number [facility] [address] [place] [phone] * (ABNORMAL) CBC auto differential (07/10/2024 1:00 PM EST) White Blood Count 5.6 4.8 - 10.8 X10*3/uL [facility] Red Blood Count 5.21 4.60 - 5.80 X10*6/uL [facility] Hemoglobin 14.7 14.0 - 18.0 g/dl [facility] Hematocrit 44.8 42.0 - 52.0 % [facility] Mean Corpuscular Volume 86.0 80.0 - 98.0 fL [facility] Mean Corpuscular Hemoglobin 28.2 27.0 - 33.0 pg [facility] Mean Corpuscular HGB Conc 32.8 31.0 - 36.0 g/dl [facility] Red Cell Distribution Width 14.2 11.0 - 16.0 % [facility] Platelet Count 223 160 - 400 X10*3/uL [facility] Mean Platelet Volume 10.3 9.4 - 12.4 fL [facility] Neutrophils Percent Auto 54.2 45 - 73 % [facility] Imm Gran Pct Auto 0.4 0.0 - 0.4 % [facility] Lymphocytes Percent Auto 26.4 20 - 40 % [facility] Monocytes Percent Auto 16.3(H) 2 - 11 % [facility] Eosinophils Percent Auto 2.3 0 - 4 % [facility] Basophils Percent Auto 0.4 0 - 2 % [facility] NRBC Pct Auto 0.0 0.0 - 0.2 /100WBC [facility] Neutrophils Absolute Auto 3.0 2.0 - 8.3 x10*3/uL [facility] Imm Gran Abs Auto 0.02 0.00 - 0.03 X10*3/uL [facility] Lymphocytes Absolute Auto 1.5 1.2 - 4.9 X10*3/uL [facility] Monocytes Absolute Auto 0.9 0.1 - 1.2 X10*3/uL [facility] Eosinophils Absolute Auto 0.1 0.0 - 0.4 X10*3/uL [facility] Basophils Absolute Auto 0.0 0.0 - 0.2 X10*3/uL [facility] NRBC Abs Auto 0.000 0.0 - 0.012 X10*3/uL [facility] 07/10/2024 1:00 PM EST 07/10/2024 1:08 PM EST us Generic External Data Provider LAB BLOOD ORDERAB LES Final Result [facility] [address] [place] [address] [phone] documented in this encounter Visit Diagnoses Diagnosis Obstructive sleep apnea syndrome- Primary Obstructive sleep apnea (adult) (pediatric) documented in this encounter Additional Health Concerns Assessment Noted Time PHQ-9 Depression Total Score: 0 08/14/19 24 11:13 AM EST documented as of this encounter Care Teams Transcription Coordinator Relationship Specialty Start Date End Date Rachele Treviño MD [address] [place] [phone] PCP - General Family Medicine 06/11/18 documented as of this encounter
== END 2024-07-10 17:28 | disposition home or self-care (01) ==
PROVIDERS: Physician Assistant; Emergency Provider Emergency Medicine; PCP Family Medicine
DX: K52.9 Noninfective gastroenteritis and colitis, unspecified (principal); R11.2 Nausea with vomiting, unspecified; E66.9 Obesity, unspecified; Z68.42 Body mass index [BMI] 45.0-49.9, adult; Z03.818 Encounter for observation for suspected exposure to other biological agents ruled out
CPT/HCPCS: 0241U; 36415; 80053; 83690; 85025; 85610; 99282; 99283

== ENCOUNTER 2024-09-04 10:02 | Outpatient (REF) | payer OTHER, SELFPAY ==
[2024-09-04 11:08] LABS: MANUAL DIFF FLAG NO
[2024-09-04 11:15] LABS: Basophils Percent Auto 0.6 % (0-2); Eosinophils Absolute Auto 0.2 X10*3/uL (0.0-0.4); Eosinophils Percent Auto 2.9 % (0-4); Hematocrit 41.3 % (42.0-52.0); Hemoglobin 13.6 g/dl (14.0-18.0); Imm Gran Abs Auto 0.03 X10*3/uL (0.00-0.03); Imm Gran Pct Auto 0.5 % (0.0-0.4); Lymphocytes Absolute Auto 2.2 X10*3/uL (1.2-4.9); Lymphocytes Percent Auto 33.5 % (20-40); Mean Corpuscular HGB Conc 32.9 g/dl (31.0-36.0); Mean Corpuscular Volume 85.2 fL (80.0-98.0); Mean Platelet Volume 10.8 fL (9.4-12.4); Monocytes Absolute Auto 0.5 X10*3/uL (0.1-1.2); Monocytes Percent Auto 8.2 % (2-11); Neutrophils Absolute Auto 3.6 x10*3/uL (2.0-8.3); Neutrophils Percent Auto 54.3 % (45-73); Platelet Count 242 X10*3/uL (160-400); Red Blood Count 4.85 X10*6/uL (4.60-5.80); Red Cell Distribution Width 14.6 % (11.0-16.0); White Blood Count 6.6 X10*3/uL (4.8-10.8)
[2024-09-04 11:25] LABS: Estimated Average Glucose 123 mg/dL; Hemoglobin A1c % 5.9 % (<6.0); Total Hemoglobin (HGBA1C) 3604.1166 umol/L
[2024-09-04 11:51] LABS: Prostate Specific Antigen Scr 0.82 ng/mL (<0.05-4.0)
[2024-09-04 11:52] LABS: Alanine Aminotransferase 41 U/L (0-40); Albumin Level 4.1 g/dL (3.5-5.0); Alkaline Phosphatase 73 U/L (39-117); Anion Gap 9 (12-20); Aspartate Amino Transferase 27 U/L (5-37); Bilirubin Total 0.5 mg/dL (0.0-1.0); Blood Urea Nitrogen 21 mg/dL (9-16); Calcium 8.9 mg/dL (8.4-10.2); Carbon Dioxide 25 mmol/L (22-29); Chloride 110 mmol/L (96-108); Cholesterol 159 mg/dL (<200); Estimated Glomerular Filt Rate > 60; Glucose Random 114 mg/dL (60-115); HDL Cholesterol 42 mg/dL (>40); LDL Cholesterol Calculated 102 mg/dL (<100); Potassium 4.3 mmol/L (3.3-5.1); Sodium 140 mmol/L (135-145); TSH reflex Free T4 1.31 uIU/mL (0.32-4.0); Total Protein 7.1 g/dL (6.5-8.0); Triglycerides 79 mg/dL (<150)
[2024-09-04 12:52] LABS: Reflex LDLD? No
[2024-09-11 19:19] LABS: Testosterone, Free 44.7 pg/mL (35.0-155.0); Testosterone, Total 197 ng/dL (250-1100)
== END 2024-09-04 10:03 | disposition home or self-care (01) ==
LOC: HO.HHCL 10:02
PROVIDERS: Visit Provider Family Medicine
DX: R03.0 Elevated blood-pressure reading, without diagnosis of hypertension (principal); K76.0 Fatty (change of) liver, not elsewhere classified; R73.03 Prediabetes; N52.9 Male erectile dysfunction, unspecified
CPT/HCPCS: 36415; 80053; 80061; 83036; 84153; 84402; 84403; 84443; 85025

== ENCOUNTER 2024-09-25 14:09 | Outpatient (REF) | payer OTHER, SELFPAY ==
--- NOTE | ~2024-09-25 | XR_ITS ---
EXAMINATION: XR ANKLE, RIGHT CLINICAL INFORMATION: 1 week lateral pain and swelling of right ankle COMPARISON: None available. TECHNIQUE: AP, lateral, and mortise views of the right ankle. FINDINGS: No acute cortical disruption or malalignment. No lytic or blastic lesion. No subcutaneous emphysema. No metallic or radiopaque foreign body. Small exostosis at the Achilles tendon insertion. XR/XR ankle RT min 3V IMPRESSION: No acute fracture or dislocation. Mild enthesopathy, Achilles tendon. Electronically signed by: Nahun Tesfaye MD 09/25/2024 03:56 PM EDT
== END 2024-09-25 14:10 | disposition home or self-care (01) ==
LOC: HO.HHCX 14:09
PROVIDERS: Visit Provider Family Medicine
DX: M25.571 Pain in right ankle and joints of right foot (principal); M25.471 Effusion, right ankle
CPT/HCPCS: 73610

== ENCOUNTER → 2024-09-25 14:10 | Outpatient (BNV) | payer OTHER, SELFPAY | PROVIDERS: Visit Provider Radiology Diagnostic Radiology | DX: M25.571 Pain in right ankle and joints of right foot (principal); R22.41 Localized swelling, mass and lump, right lower limb | CPT/HCPCS: 73610 ==